=== PATIENT | female | born 1975 | race African-American/Black ===

== ENCOUNTER 2016-09-08 13:18 | Emergency (ER) | payer SELFPAY ==
--- NOTE | 2016-09-08 13:40 | ER Document Report ---
ED Medical Screen (RME) - General Stated Complaint: THIGH SORE Mode of Arrival: Ambulatory Information source: Patient Notes: 41 y/o F presents to ED c/o abscess to inner thigh over the last 3 days. Reports noted drainage today. Denies fever. I have greeted and performed a rapid initial assessment of this patient. A comprehensive ED assessment and evaluation of the patient, analysis of test results and completion of the medical decision making process will be conducted by additional ED providers. - Related Data Allergies/Adverse Reactions: No Known Allergies Allergy (Verified 09/08/16 13:38) Past Medical History - Immunizations Immunizations up to date: Yes Physical Exam - Vital signs Vitals: Temp Pulse Resp BP Pulse Ox 98.7 F 117 H 18 164/92 H 97 09/08/16 13:35 09/08/16 13:35 09/08/16 13:35 09/08/16 13:35 09/08/16 13:35 - General General appearance: Appears well, Alert In distress: None - Respiratory Respiratory status: No respiratory distress Course - Vital Signs Vital signs: Temp Pulse Resp BP Pulse Ox 98.7 F 117 H 18 164/92 H 97 09/08/16 13:35 09/08/16 13:35 09/08/16 13:35 09/08/16 13:35 09/08/16 13:35
--- NOTE | 2016-09-08 15:20 | ER Document Report ---
ED Skin Rash/Insect Bite/Abscs - General Chief Complaint: Cyst Stated Complaint: THIGH SORE Time seen by provider: 15:17 Mode of Arrival: Ambulatory Information source: Patient Notes: 41-year-old female presents to ED for an abscess to the right inner thigh she noticed about 3 days ago and has been growing in size and intensity of pain. Patient states she's had abscesses before that of resolved on her own never had to come to the emergency room or her doctor for one. TRAVEL OUTSIDE OF THE [place] IN LAST 30 DAYS: No - HPI Patient complains to provider of: Tender/swollen area Onset: Other Onset/Duration: Gradual - 3 days Quality of pain: Sharp, Throbbing Severity: Moderate Pain Level: 3 Skin Character: Abscess, Erythema, Tenderness Quality of rash: Painful Identify cause: No Exacerbated by: Movement, Walking Relieved by: Denies Similar symptoms previously: Yes Recently seen / treated by doctor: No - Related Data Allergies/Adverse Reactions: No Known Allergies Allergy (Verified 09/08/16 13:38) Past Medical History - General Information source: Patient - Social History Smoking Status: Never Smoker Cigarette use (# per day): No Chew tobacco use (# tins/day): No Smoking Education Provided: No Frequency of alcohol use: None Drug Abuse: None Occupation: none Lives with: Parents - 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 Family History: CVA, DM, Hyperlipidemia, Hypertension Patient has suicidal ideation: No Patient has homicidal ideation: No - Past Medical History Cardiac Medical History: Reports: Hx Hypertension Pulmonary Medical History: Reports: None EENT Medical History: Reports: None Neurological Medical History: Reports: None Endocrine Medical History: Reports: None Renal/ Medical History: Reports: None Malignancy Medical History: Reports: None GI Medical History: Reports: None Musculoskeltal Medical History: Reports Hx Musculoskeletal Trauma - Fracture to her leg Skin Medical History: Reports Hx Cellulitis, Denies Hx MRSA Psychiatric Medical History: Reports: None Traumatic Medical History: Reports: Hx Fractures - Leg at 8 years old Infectious Medical History: Reports: None Surgical Hx: Negative Past Surgical History: Reports: None - Immunizations Immunizations up to date: No Hx Diphtheria, Pertussis, Tetanus Vaccination: No Review of Systems - Review of Systems Constitutional: No symptoms reported EENT: No symptoms reported Cardiovascular: No symptoms reported Respiratory: No symptoms reported Gastrointestinal: No symptoms reported Genitourinary: No symptoms reported Female Genitourinary: No symptoms reported Musculoskeletal: No symptoms reported Skin: Other - Abscess to right upper thigh Hematologic/Lymphatic: No symptoms reported Neurological/Psychological: No symptoms reported -: Yes All other systems reviewed and negative Physical Exam - Vital signs Vitals: Temp Pulse Resp BP Pulse Ox 98.7 F 117 H 18 164/92 H 97 09/08/16 13:35 09/08/16 13:35 09/08/16 13:35 09/08/16 13:35 09/08/16 13:35 Interpretation: Normal - General General appearance: Appears well, Alert - HEENT Head: Normocephalic, Atraumatic Eyes: Normal Pupils: PERRL - Respiratory Respiratory status: No respiratory distress Chest status: Nontender Breath sounds: Normal Chest palpation: Normal - Cardiovascular Rhythm: Regular Heart sounds: Normal auscultation Murmur: No - Abdominal Inspection: Normal Distension: No distension Bowel sounds: Normal Tenderness: Nontender Organomegaly: No organomegaly - Back Back: Normal, Nontender - Extremities General upper extremity: Normal inspection, Nontender, Normal color, Normal ROM , Normal temperature General lower extremity: Normal inspection, Nontender, Normal color, Normal ROM , Normal temperature, Normal weight bearing. No: Kelsey's sign - Neurological Neuro grossly intact: Yes Cognition: Normal Orientation: AAOx4 [place] Coma Scale Eye Opening: Spontaneous Karsten Coma Scale Verbal: Oriented Karsten Coma Scale Motor: Obeys Commands Karsten Coma Scale Total: 15 Speech: Normal Motor strength normal: LUE, RUE, LLE, RLE Sensory: Normal - Psychological Associated symptoms: Normal affect, Normal mood - Skin Skin Temperature: Warm Skin Moisture: Dry Skin Color: Normal Skin irregularity: Abscess Location of irregularity: Extremities - Right inner thigh upper Irregularity with: Swelling, Tenderness, Warmth Course - Re-evaluation Re-evalutation: 09/08/16 16:34 Patient instructed to please keep the area clean and dry if do dressing becomes soiled to please change dressing right away otherwise change dressing 2 times a day. Patient instructed and do not pull the packing out but to return to the emergency room in 48 hours to have the wound reexamined and repacked if necessary. - Vital Signs Vital signs: Temp Pulse Resp BP Pulse Ox 98.7 F 117 H 18 164/92 H 97 09/08/16 13:35 09/08/16 13:35 09/08/16 13:35 09/08/16 13:35 09/08/16 13:35 Procedures - Incision and Drainage Right Upper Thigh Type: Simple Anesthetic type: 1% Lidocaine mL's of anesthetic: 5 Blade size: 11 I&D procedure: Iodoform packing placed, Sterile dressing applied, Other - surgical scrub Incision Method: Incision made by scalpel Amount/type of drainage: moderate amount Discharge - Discharge Clinical Impression: Abscess of right thigh Condition: Stable Disposition: HOME, SELF-CARE Additional Instructions: ABSCESS: You have an abscess (boil). This a pus-forming infection, usually due to staph. Some boils may be left to drain on their own, but most require lancing. From the time the tender lump first appears, it may be three or four days before the abscess is ready to omayra. Local heat and rest help at this stage of treatment. An antibiotic may prevent spread of the infection. Once the abscess is opened, packing may be placed into it. This is done so pus is not sealed inside by premature closure of the cavity. The packing will be removed at your follow-up visit or you may be advised to remove it yourself at home. Sometimes this packing must be replaced a few times during healing. The wound will heal with surprisingly little scar. Depending on the size and location of an abscess, healing can take one to four weeks. You may shower and wash the area around the incision site two or three times a day. Antibiotics may be prescribed, but are usually not necessary after an abscess has been drained. If you develop fever, chills, worsening pain, or increasing swelling in the area, call the doctor or return immediately. POST INCISION AND DRAINAGE: You have had an incision made to allow drainage of an abscess. The incision must remain open so that pus and debris can drain from the wound. If the abscess cavity is large, packing is placed. This keeps the tissues from collapsing and trapping pus inside, while the body shrinks the cavity. The packing may need to be replaced every day or two. The physician will instruct you on the packing. Keep a bulky dressing over the area. Replace it if it becomes saturated with blood or pus. Do not disturb the packing (if present). You may shower and cleanse the area with gentle soap and warm water two or three times a day. Local warmth may be soothing, and may promote faster healing. Return if you develop high fever or chills, or if you note spreading redness, increasing swelling, or increasing tenderness. MRSA CELLULITIS: You have an infection of your skin and underlying soft tissues called cellulitis. This is due to bacteria, which can enter through any break in the skin, or even through an irritated hair follicle. Untreated, cellulitis will usually worsen and may form an abscess which requires draining. Although many bacterial organisms can cause cellulitis and abscess formations, the most likely bacteria is Methicillin-Resistant Staph Aureus, or MRSA for short. Antibiotics are required. Usually, warm packs or warm soaks, and elevation of the infected area are recommended. You should start getting better within 24 to 36 hours. Most infections respond quickly to the right medication. Follow-up care is important, however, to check for abscess (boil) formation, unsuspected foreign body, or resistant infection. If you develop fever, chills, or if the area of infection is becoming rapidly more swollen or painful, call the doctor at once. ORAL NARCOTIC MEDICATION: You have been given a prescription for pain control. This medication is a narcotic. It's best taken with food, as nausea can result if taken on an empty stomach. Don't operate machinery or drive within six hours of taking this medication. Do not combine this medicine with alcohol, or with any medication which can cause sedation (such as cold tablets or sleeping pills) unless you get permission from the physician. Narcotics tend to cause constipation. If possible, drink plenty of fluids and eat a diet high in fiber and fruits. CEPHALEXIN: The antibiotic you've been prescribed is a member of the cephalosporin class. This type of antibiotic covers a wide variety of infections, including those of the skin, lungs, and urinary tract. It's useful for staph infections. This antibiotic is slightly similar to the penicillin family. In rare cases , a person who is allergic to penicillin will also be allergic to this medication. If you have had a severe allergic reaction to penicillin, and have not taken this antibiotic since that time, notify your doctor. Antibiotics which cover many germs ("broad spectrum" antibiotics) are more likely to cause diarrhea or "yeast" infections. Women prone to vaginal yeast problems may suffer an attack after taking this antibiotic. In infants, oral thrush (white spots "stuck" on the cheek) or yeast diaper rash may result. See your doctor if these problems occur. Call at once if you develop itching, hives , shortness of breath, or lightheadedness. TRIMETHOPRIM-SULFA: You have been given a prescription for trimethoprim-sulfa (TMS, Septra, Bactrim). This is a combination antibiotic of the sulfa class, often used for urinary tract infections, middle ear infections, bronchitis, shigella intestinal infection, and Pneumocystis pneumonia. TMS is usually well-tolerated. Occasional side effects include nausea and decreased appetite. Septra is not recommended for infants less than two months of age. Do not take this medication if you have experienced severe side effects or allergy to sulfa medicine. You should stop this medicine at once and contact your physician if you develop any rash, joint pain, shortness of breath, bruising, or jaundice ( yellow color in the skin), or if you develop any other new or unusual symptoms. FOLLOW-UP CARE: Most simple abscesses will not require a follow up visit. If you had packing placed in the abscess, remove it as instructed by the physician. If you have been referred to a physician for follow-up care, call the physicians office for an appointment as you were instructed or within the next two days. If you experience worsening or a significant change in your symptoms, return to the Emergency Department at any time for re-evaluation. Return to the ED in 48 hours to have this abscess reexamined the packing removed and if necessary replaced. Please bring back your bottle of packing do not open it do not mess with it is bring him back as is. Prescriptions: Hydrocodone/Acetaminophen [[place] 5-325 mg Tablet] 1 tab PO Q6HP PRN #14 tablet PRN Reason: Cephalexin Monohydrate [Keflex 500 mg Capsule] 500 mg PO QID #20 capsule Sulfamethoxazole/Trimethoprim [Bactrim Ds Tablet] 1 each PO BID #20 tablet Forms: Elevated Blood Pressure
[2016-09-08 16:37] VITALS: BP 151/98
== END 2016-09-08 16:41 | disposition home or self-care (01) ==
LOC: ER 13:18
PROC: 0H9HXZZ Drainage of Right Upper Leg Skin, External Approach (ICD-10-PCS; principal; 2016-09-08)
DX: L02.415 Cutaneous abscess of right lower limb (principal)
CPT/HCPCS: 99283

== ENCOUNTER 2016-09-11 14:30 | Emergency (ER) | payer SELFPAY ==
--- NOTE | 2016-09-11 14:39 | ER Document Report ---
ED Medical Screen (RME) - General Stated Complaint: WOUND RECHECK Mode of Arrival: Ambulatory Information source: Patient Notes: c/o abscess to right inner groin that was I&D on Thursday that was done at this ED and she endorses continued pain and drainage (blood, clear liquid). Packing left in place. Endorses nausea but denies fever, chills, vomiting. She was given kelfex, norco and bactrim, endorses compliance. I have greeted and performed a rapid initial assessment of this patient. A comprehensive ED assessment and evaluation of the patient, analysis of test results and completion of the medical decision making process will be conducted by additional ED providers. TRAVEL OUTSIDE OF THE [place] IN LAST 30 DAYS: No - Related Data Allergies/Adverse Reactions: No Known Allergies Allergy (Verified 09/11/16 14:37) Past Medical History - Past Medical History Cardiac Medical History: Reports: Hx Hypertension Renal/ Medical History: Denies: Hx Peritoneal Dialysis Musculoskeltal Medical History: Reports Hx Musculoskeletal Trauma - Fracture to her leg Skin Medical History: Reports Hx Cellulitis, Denies Hx MRSA Traumatic Medical History: Reports: Hx Fractures - Leg at 8 years old - Immunizations Immunizations up to date: No Hx Diphtheria, Pertussis, Tetanus Vaccination: No
--- NOTE | 2016-09-11 15:02 | ER Document Report ---
HPI - HPI Patient complains to provider of: wound check Onset: Other - thursday Onset/Duration: Better Pain Level: Denies Context: 41 yo female with abscess I and D on thursday here for packing removal, recheck. No fever. Feels better. Associated Symptoms: None Exacerbated by: Movement Relieved by: Denies Similar symptoms previously: No Recently seen / treated by doctor: Yes - ROS ROS below otherwise negative: Yes Systems Reviewed and Negative: Yes All other systems reviewed and negative - REPRODUCTIVE LMP: September 06, 2016 Reproductive: DENIES: : - DERM Skin Color: Normal Past Medical History - General Information source: Patient - Social History Smoking Status: Never Smoker Chew tobacco use (# tins/day): No Frequency of alcohol use: None Drug Abuse: None Family History: CVA, DM, Hyperlipidemia, Hypertension Patient has suicidal ideation: No Patient has homicidal ideation: No - Past Medical History Cardiac Medical History: Reports: Hx Hypertension Renal/ Medical History: Denies: Hx Peritoneal Dialysis Musculoskeltal Medical History: Reports Hx Musculoskeletal Trauma - Fracture to her leg Skin Medical History: Reports Hx Cellulitis Traumatic Medical History: Reports: Hx Fractures - Leg at 8 years old Surgical Hx: Negative - Immunizations Immunizations up to date: No Hx Diphtheria, Pertussis, Tetanus Vaccination: No Vertical Provider Document - CONSTITUTIONAL Agree With Documented VS: Yes Exam Limitations: No Limitations - INFECTION CONTROL TRAVEL OUTSIDE OF THE [place] IN LAST 30 DAYS: No - HEENT HEENT: Normocephalic - NECK Neck: Supple - RESPIRATORY O2 Sat by Pulse Oximetry: 98 - DERM Integumentary: Abscess - right medial proximal thigh, packing removed, no pus, 2 cm oval induration persists. Course - Vital Signs Vital signs: Temp Pulse Resp BP Pulse Ox 98.8 F 109 H 16 172/107 H 98 09/11/16 14:38 09/11/16 14:38 09/11/16 14:38 09/11/16 14:38 09/11/16 14:38 Discharge - Discharge Clinical Impression: wound check packing removal, Elevated blood pressure reading Condition: Good Disposition: HOME, SELF-CARE Instructions: Abscess ([facility]), High Blood Pressure ([facility]), Family Physicians / Practices Additional Instructions: continue antibiotics low salt diet recheck blood pressure in 1 week at family practice doctor. Wash vigorously with wash cloth and soap daily Dry dressing Call me on Thursday for the wound culture report [phone] to er any concerns
[2016-09-11 15:56] VITALS: BP 147/96
== END 2016-09-11 15:57 | disposition home or self-care (01) ==
LOC: ER 14:30
DX: Z48.01 Encounter for change or removal of surgical wound dressing (principal); L02.415 Cutaneous abscess of right lower limb; I10 Essential (primary) hypertension
CPT/HCPCS: 87070; 87077; 87186; 87205; 99283

== ENCOUNTER 2017-02-07 16:48 | Emergency (ER) | payer OTHER ==
[2017-02-07 16:53] VITALS: BP 165/89
[2017-02-07] MEDS ORDERED: LIDOCAINE 2% VISCOUS SOLN 20 ML UDCUP PO ONE (17:20)
[2017-02-07] MEDS ORDERED: MAG HYDROX/AL HYDROX/SIMETH SUSP 30 ML UDCUP PO ONE (17:20)
--- NOTE | 2017-02-07 17:36 | ER Document Report ---
HPI - HPI Patient complains to provider of: sore throat Pain Level: 4 Context: 42 yo female c/o sore throat x 5 days. hurts to swallow. no fever. Associated Symptoms: Body/muscle aches, Nonproductive cough, Other - fatigue. denies: Fever, Hoarseness, Nausea, Vomiting, Shortness of breath Exacerbated by: Denies Relieved by: Denies Similar symptoms previously: No Recently seen / treated by doctor: No - ROS Systems Reviewed and Negative: Yes All other systems reviewed and negative - CARDIOVASCULAR Cardiovascular: DENIES: Chest pain - REPRODUCTIVE Reproductive: DENIES: : - DERM Skin Color: Normal Past Medical History - General Information source: Patient - Social History Smoking Status: Never Smoker Chew tobacco use (# tins/day): No Frequency of alcohol use: None Drug Abuse: None Lives with: Family Family History: CVA, DM, Hyperlipidemia, Hypertension - Past Medical History Cardiac Medical History: Reports: Hx Hypertension - "borderline" Renal/ Medical History: Denies: Hx Peritoneal Dialysis Musculoskeltal Medical History: Reports Hx Musculoskeletal Trauma - Fracture to her leg Skin Medical History: Reports Hx Cellulitis, Denies Hx MRSA Traumatic Medical History: Reports: Hx Fractures - Leg at 8 years old Surgical Hx: Negative - Immunizations Immunizations up to date: No Hx Diphtheria, Pertussis, Tetanus Vaccination: No Vertical Provider Document - CONSTITUTIONAL Agree With Documented VS: Yes Exam Limitations: No Limitations General Appearance: WD/WN, No Apparent Distress - INFECTION CONTROL TRAVEL OUTSIDE OF THE [place] IN LAST 30 DAYS: No - HEENT HEENT: Atraumatic, PERRLA, Pharyngeal Tenderness. negative: Pharyngeal Exudate , Pharyngeal Erythema - NECK Neck: Lymphadenopathy-Left - anterior cervical. negative: Lymphadenopathy-Right - RESPIRATORY Respiratory: Breath Sounds Normal, No Respiratory Distress O2 Sat by Pulse Oximetry: 97 - CARDIOVASCULAR Cardiovascular: Regular Rate, Regular Rhythm - GI/ABDOMEN Gastrointestinal: Abdomen Soft - NEURO Level of Consciousness: Awake, Alert, Appropriate - DERM Integumentary: Warm, Dry, No Rash Course - Re-evaluation Re-evalutation: 02/07/17 17:35 no signs of airway obstruction, any's, tonsillar abscess. will treat with oral steroids for comfort - Vital Signs Vital signs: Temp Pulse Resp BP Pulse Ox 97.9 F 106 H 16 165/89 H 97 02/07/17 16:53 02/07/17 16:53 02/07/17 16:53 02/07/17 16:53 02/07/17 16:53 Discharge - Discharge Clinical Impression: Strep throat Condition: Stable Disposition: HOME, SELF-CARE Additional Instructions: You have strep throat take all antibiotic as prescribed oral steroid as prescribed lozenges, salt water gargles recommend new tooth brush in 2 days Prescriptions: Penicillin V Potassium [Penicillin Vk 500 mg Tablet] 500 mg PO BID #20 tablet Prednisone [Deltasone 20 mg Tablet] 2 tab PO BID #16 tablet Forms: Elevated Blood Pressure
[2017-02-07] MEDS ORDERED: PENICILLIN V POTASSIUM 500 MG TABLET PO ONE (19:14)
[2017-02-07] MEDS ORDERED: IBUPROFEN 800 MG TABLET PO ONE (19:15)
== END 2017-02-07 19:39 | disposition home or self-care (01) ==
LOC: ER 16:48
DX: J02.0 Streptococcal pharyngitis (principal); R52 Pain, unspecified; R05 Cough; R53.83 Other fatigue
CPT/HCPCS: 99283; 87880; J3490

== ENCOUNTER 2018-02-19 19:45 | Emergency (ER) | payer SELFPAY ==
[2018-02-19] MEDS ORDERED: NORMAL SALINE 1000 ML 1,000 ML IV ONE ×2 (21:10→23:53)
[2018-02-19] MEDS ORDERED: ONDANSETRON HCL INJ/PF 4 MG/2 ML SDV IV ONE (21:10)
--- NOTE | 2018-02-19 21:12 | ER Document Report ---
ED Medical Screen (RME) - General Chief Complaint: Nausea/Vomiting/Diarrhea Stated Complaint: ABDOMINAL PAIN Time Seen by Provider: 02/19/18 21:04 Mode of Arrival: Ambulatory Information source: Patient Notes: Patient is an otherwise healthy 43-year-old female who presents with chief complaint of nausea, vomiting and diarrhea that started Thursday morning. Patient also reports upper abdominal pain. Patient reports she had vomited at least 8 times today and had at least 10 episodes of diarrhea. Patient denies any fever or dysuria. Patient denies any previous surgeries on her abdomen. Patient denies any sick contacts with similar symptoms. Exam: Tenderness to palpation to right upper and left upper quadrants. Tenderness to palpation to the epigastric area as well. I have greeted and performed a rapid initial assessment of this patient. A comprehensive ED assessment and evaluation of the patient, analysis of test results and completion of the medical decision making process will be conducted by additional ED providers. Dictation of this chart was performed using voice recognition software; therefore, there may be some unintended grammatical errors. TRAVEL OUTSIDE OF THE [place] IN LAST 30 DAYS: No - Related Data Allergies/Adverse Reactions: No Known Allergies Allergy (Verified 02/07/17 16:52) Past Medical History - Social History Chew tobacco use (# tins/day): No Frequency of alcohol use: None Drug Abuse: None - Past Medical History Cardiac Medical History: Reports: Hx Hypertension - "borderline" Renal/ Medical History: Denies: Hx Peritoneal Dialysis Musculoskeltal Medical History: Reports Hx Musculoskeletal Trauma - Fracture to her leg Skin Medical History: Reports Hx Cellulitis, Denies Hx MRSA Traumatic Medical History: Reports: Hx Fractures - Leg at 8 years old - Immunizations Immunizations up to date: No Hx Diphtheria, Pertussis, Tetanus Vaccination: No Physical Exam - Vital signs Vitals: Temp Pulse Resp BP Pulse Ox 99.4 F 114 H 20 143/86 H 98 02/19/18 19:53 02/19/18 19:53 02/19/18 19:53 02/19/18 19:53 02/19/18 19:53 Course - Vital Signs Vital signs: Temp Pulse Resp BP Pulse Ox 99.4 F 114 H 20 143/86 H 98 02/19/18 19:53 02/19/18 19:53 02/19/18 19:53 02/19/18 19:53 02/19/18 19:53
[2018-02-19 21:46] LABS: ABSOLUTE EOSINOPHILS # (AUTO) 0.1 10^3/uL (0.0-0.6); ABSOLUTE LYMPHOCYTES (AUTO) 1.9 10^3/uL (0.5-4.7); ABSOLUTE MONOCYTES (AUTO) 0.9 10^3/uL (0.1-1.4); ABSOLUTE NEUT (AUTO) 3.3 10^3/uL (1.7-8.2); BASOPHILS % (AUTO) 0.7 % (0-2); EOSINOPHILS % (AUTO) 1.7 % (0-6); HEMATOCRIT 46.4 % (36.0-47.0); HEMOGLOBIN 15.8 g/dL (12.0-15.5); LYMPHOCYTES % (AUTO) 30.1 % (13-45); MEAN CORPUSCULAR HEMOGLOBIN 28.7 pg (27.0-33.4); MEAN CORPUSCULAR VOLUME 85 fl (80-97); MONOCYTES % (AUTO) 14.2 % (3-13); PLATELET COUNT 274 10^3/uL (150-450); RED CELL DISTRIBUTION WIDTH 13.7 % (11.5-14.0); SEGMENTED NEUTROPHILS % (AUTO) 53.3 % (42-78); TOTAL CELLS COUNTED % (AUTO) 100 %; WHITE BLOOD COUNT 6.2 10^3/uL (4.0-10.5)
[2018-02-19 22:08] LABS: ALANINE AMINOTRANSFERASE 34 U/L (9-52); ALBUMIN 4.3 g/dL (3.5-5.0); ALKALINE PHOSPHATASE 75 U/L (38-126); ANION GAP 14 (5-19); ASPARTATE AMINO TRANSFERASE 60 U/L (14-36); BILIRUBIN,DIRECT 0.6 mg/dL (0.0-0.4); BILIRUBIN,TOTAL 0.9 mg/dL (0.2-1.3); BLOOD UREA NITROGEN 15 mg/dL (7-20); CALCIUM 9.4 mg/dL (8.4-10.2); CARBON DIOXIDE 25 mmol/L (22-30); CHLORIDE 99 mmol/L (98-107); GLUCOSE 313 mg/dL (75-110); LIPASE 84.1 U/L (23-300); POTASSIUM 4.2 mmol/L (3.6-5.0); SODIUM 137.9 mmol/L (137-145); TOTAL PROTEIN 8.6 g/dL (6.3-8.2)
[2018-02-20] MEDS ORDERED: DICYCLOMINE HCL 20 MG TABLET PO ONE (00:13)
[2018-02-20] MEDS ORDERED: KETOROLAC TROMETHAMINE INJ/PF 30 MG/1 ML SDV IV ONE (00:13)
[2018-02-20 00:59] LABS: APPEARANCE,URINE SLIGHTLY-CLOUDY; BILIRUBIN,URINE NEGATIVE (NEGATIVE); COLOR,URINE YELLOW; GLUCOSE, URINE >=500 mg/dL (NEGATIVE); KETONES,URINE TRACE mg/dL (NEGATIVE); LEUKOCYTE ESTERASE,URINE TRACE (NEGATIVE); NITRITE,URINE NEGATIVE (NEGATIVE); PROTEIN,URINE 100 mg/dL (NEGATIVE); UROBILINOGEN,URINE NEGATIVE mg/dL (<2.0)
[2018-02-20] MEDS ORDERED: ONDANSETRON ODT 4 MG TAB (6 TAB/ER DISP) PO PRN (01:06)
--- NOTE | 2018-02-20 01:06 | ER Document Report ---
ED General - General Chief Complaint: Nausea/Vomiting/Diarrhea Stated Complaint: ABDOMINAL PAIN Time Seen by Provider: 02/19/18 21:04 Mode of Arrival: Ambulatory TRAVEL OUTSIDE OF THE [place] IN LAST 30 DAYS: No - HPI Patient complains to provider of: Nausea vomiting diarrhea abdominal cramps Notes: Patient coming in for depressive symptoms ongoing for the last 3 days. Patient states has been drinking plenty of water however is not wanting to eat any food. Denies any recent travel denies any recent antibiotics. Denies any fevers chills. Patient states no recent sick contacts. Patient was accompanied for my evaluation. States pain in her abdomen comes and goes sharp and intense and is coming on also associated with diarrhea - Related Data Allergies/Adverse Reactions: No Known Allergies Allergy (Verified 02/07/17 16:52) Past Medical History - General Information source: Patient - Social History Smoking Status: Never Smoker Chew tobacco use (# tins/day): No Frequency of alcohol use: None Drug Abuse: None Family History: CVA, DM, Hyperlipidemia, Hypertension Patient has suicidal ideation: No Patient has homicidal ideation: No - Past Medical History Cardiac Medical History: Reports: Hx Hypertension - "borderline" Renal/ Medical History: Denies: Hx Peritoneal Dialysis Musculoskeletal Medical History: Reports Hx Musculoskeletal Trauma - Fracture to her leg Skin Medical History: Reports Hx Cellulitis, Denies Hx MRSA Traumatic Medical History: Reports: Hx Fractures - Leg at 8 years old - Immunizations Immunizations up to date: No Hx Diphtheria, Pertussis, Tetanus Vaccination: No Review of Systems - Review of Systems Constitutional: No symptoms reported EENT: No symptoms reported Cardiovascular: No symptoms reported Respiratory: No symptoms reported Gastrointestinal: Abdominal pain, Diarrhea, Nausea, Vomiting Genitourinary: No symptoms reported Female Genitourinary: No symptoms reported Musculoskeletal: No symptoms reported Skin: No symptoms reported Hematologic/Lymphatic: No symptoms reported Neurological/Psychological: No symptoms reported -: Yes All other systems reviewed and negative Physical Exam - Vital signs Vitals: Temp Pulse Resp BP Pulse Ox 99.4 F 114 H 20 143/86 H 98 02/19/18 19:53 02/19/18 19:53 02/19/18 19:53 02/19/18 19:53 02/19/18 19:53 Interpretation: Normal - General General appearance: Appears well, Alert - HEENT Head: Normocephalic, Atraumatic Eyes: Normal Pupils: PERRL - Respiratory Respiratory status: No respiratory distress Chest status: Nontender Breath sounds: Normal Chest palpation: Normal - Cardiovascular Rhythm: Regular Heart sounds: Normal auscultation Murmur: No - Abdominal Inspection: Normal Distension: No distension Bowel sounds: Normal Tenderness: Nontender Organomegaly: No organomegaly - Back Back: Normal, Nontender - Extremities General upper extremity: Normal inspection, Nontender, Normal color, Normal ROM , Normal temperature General lower extremity: Normal inspection, Nontender, Normal color, Normal ROM , Normal temperature, Normal weight bearing. No: Kelsey's sign - Neurological Neuro grossly intact: Yes Cognition: Normal Orientation: AAOx4 [place] Coma Scale Eye Opening: Spontaneous [place] Coma Scale Verbal: Oriented [place] Coma Scale Motor: Obeys Commands [place] Coma Scale Total: 15 Speech: Normal Motor strength normal: LUE, RUE, LLE, RLE Sensory: Normal - Psychological Associated symptoms: Normal affect, Normal mood - Skin Skin Temperature: Warm Skin Moisture: Dry Skin Color: Normal Course - Re-evaluation Re-evalutation: 02/20/18 06:17 Laboratory studies using concentration consistent with dehydration. Patient declined second bag of fluids. Was given Bentyl for her abdominal cramps more like the patient has a viral gastroenteritis. Patient does have elevation in sugars and states she has not been diagnosed with diabetes. Encouraged patient to have her PCP evaluate her sugars in the upcoming weeks. Otherwise patient will be discharged home. The patient presents with abdominal pain without signs of peritonitis or other life-threatening or serious etiology. The patient appears stable for discharge and has been instructed to return immediately if the symptoms worsen in any way, or in 8-12hr if not improved for re-evaluation. The patient has been instructed to return if the symptoms worsen or change in any way. - Vital Signs Vital signs: Temp Pulse Resp BP Pulse Ox 97.8 F 97 18 152/83 H 98 02/20/18 01:21 02/20/18 01:21 02/20/18 01:21 02/20/18 01:21 02/19/18 19:53 - Laboratory Result Diagrams: 02/19/18 21:30 02/19/18 21:30 Laboratory results interpreted by me: 02/19/18 02/19/18 02/20/18 21:30 21:30 00:21 RBC 5.50 H Hgb 15.8 H Monocytes % 14.2 H Glucose 313 H Direct Bilirubin 0.6 H AST 60 H Total Protein 8.6 H Urine Protein 100 H Urine Glucose (UA) >=500 H Urine Ketones TRACE H Ur Leukocyte Esterase TRACE H Discharge - Discharge Clinical Impression: Nausea vomiting and diarrhea Condition: Good Disposition: HOME, SELF-CARE Instructions: Clear Liquid Diet ([facility]), Gastroenteritis (adult) ([facility]) Additional Instructions: Take your medications as prescribed he returned to near symptoms worsen. Follow up with her primary care physician. At this time and laboratory values not show any significant signs of infection. We will call you with your stool culture results. Follow clear liquid diet for the next 12-24 hours. Advance as tolerated. Prescriptions: Dicyclomine HCl [Bentyl 20 mg Tablet] 20 mg PO QID #30 tablet Ondansetron [Zofran Odt] 4 mg PO Q6 PRN #30 tab.rapdis PRN Reason: For Nausea/Vomiting Forms: Return to Work
[2018-02-20 01:29] VITALS: BP 152/83
== END 2018-02-20 01:28 | disposition home or self-care (01) ==
LOC: ER 19:45
DX: R11.2 Nausea with vomiting, unspecified (principal); R19.7 Diarrhea, unspecified; R10.9 Unspecified abdominal pain
CPT/HCPCS: 99284; 96361; 96374; 96375; 36415; 87045; 87205; 83690; 85025; 81025; 87077; 80053; 81001; 87186; J3490; J1885; J2405; J7030

== ENCOUNTER → 2018-04-06 | Outpatient (CLI) | payer SELFPAY ==
[2018-04-06 14:20] LABS: ABSOLUTE BASOPHILS # (AUTO) 0.1 10^3/uL (0.0-0.2); ABSOLUTE EOSINOPHILS # (AUTO) 0.2 10^3/uL (0.0-0.6); ABSOLUTE LYMPHOCYTES (AUTO) 2.3 10^3/uL (0.5-4.7); ABSOLUTE MONOCYTES (AUTO) 0.5 10^3/uL (0.1-1.4); ABSOLUTE NEUT (AUTO) 4.9 10^3/uL (1.7-8.2); BASOPHILS % (AUTO) 0.6 % (0-2); EOSINOPHILS % (AUTO) 2.2 % (0-6); HEMATOCRIT 41.5 % (36.0-47.0); HEMOGLOBIN 14.3 g/dL (12.0-15.5); LYMPHOCYTES % (AUTO) 28.9 % (13-45); MEAN CORPUSCULAR HGB CONC 34.5 g/dL (32.0-36.0); MEAN CORPUSCULAR VOLUME 84 fl (80-97); MONOCYTES % (AUTO) 6.7 % (3-13); PLATELET COUNT 282 10^3/uL (150-450); RED BLOOD COUNT 4.93 10^6/uL (3.72-5.28); RED CELL DISTRIBUTION WIDTH 14.1 % (11.5-14.0); SEGMENTED NEUTROPHILS % (AUTO) 61.6 % (42-78); TOTAL CELLS COUNTED % (AUTO) 100 %; WHITE BLOOD COUNT 7.9 10^3/uL (4.0-10.5)
[2018-04-06 14:39] LABS: ALANINE AMINOTRANSFERASE 31 U/L (9-52); ALKALINE PHOSPHATASE 70 U/L (38-126); ANION GAP 10 (5-19); ASPARTATE AMINO TRANSFERASE 21 U/L (14-36); BILIRUBIN,DIRECT 0.5 mg/dL (0.0-0.4); BILIRUBIN,TOTAL 0.9 mg/dL (0.2-1.3); BLOOD UREA NITROGEN 12 mg/dL (7-20); CALCIUM 9.7 mg/dL (8.4-10.2); CARBON DIOXIDE 29 mmol/L (22-30); CHLORIDE 96 mmol/L (98-107); CHOLESTEROL 308.02 mg/dL (0-200); GLUCOSE 240 mg/dL (75-110); SODIUM 134.8 mmol/L (137-145); TOTAL PROTEIN 7.2 g/dL (6.3-8.2); TRIGLYCERIDES 370 mg/dL (<150)
[2018-04-06 14:50] LABS: DIRECT LDL 182 mg/dL (<100)
== END ==
LOC: OD 12:29
PROVIDERS: ATTEND Family Medicine
DX: I10 Essential (primary) hypertension (principal); Z68.42 Body mass index [BMI] 45.0-49.9, adult
CPT/HCPCS: 36415; 80053; 80061; 83036; 85025

== ENCOUNTER 2019-04-18 10:51 | Emergency (ER) | payer BC ==
[2019-04-18 11:58] LABS: A TYPE INFLUENZA AG NEGATIVE (NEGATIVE); B INFLUENZA AG NEGATIVE (NEGATIVE)
--- NOTE | 2019-04-18 12:57 | RADIOLOGY REPORT (SQ) ---
EXAM DESCRIPTION: CHEST 2 VIEWS COMPLETED DATE/TIME: 04/18/2019 12:44 pm REASON FOR STUDY: cough x1 week COMPARISON: None. EXAM PARAMETERS: NUMBER OF VIEWS: two views TECHNIQUE: Digital Frontal and Lateral radiographic views of the chest acquired. RADIATION DOSE: NA LIMITATIONS: Motion artifact on the lateral view FINDINGS: LUNGS AND PLEURA: No opacities, masses or pneumothorax. No pleural effusion. MEDIASTINUM AND HILAR STRUCTURES: No masses or contour abnormalities. HEART AND VASCULAR STRUCTURES: Mild cardiomegaly BONES: No acute findings. HARDWARE: None in the chest. OTHER: No other significant finding. IMPRESSION: Mild cardiomegaly. No acute infiltrates TECHNICAL DOCUMENTATION: JOB ID: [id number]- All Rights Reserved Reading location - IP/workstation name: [email or web address]
[2019-04-18 13:28] VITALS: BP 162/98
--- NOTE | 2019-04-18 13:31 | ER Document Report ---
HPI - HPI Time Seen by Provider: 04/18/19 11:15 Pain Level: 3 Notes: Patient is a 44-year-old female presenting to the emergency department with multiple complaints today. She reports that she has had a cough, congestion, diarrhea and shortness of breath. She denies any vomiting. She states that today while she was at work she got sweaty and then had chills. She reports history of diabetes and hypertension, states she was diagnosed with these 5 months ago but states she has not taken any of the medications as she has seen commercials that show that those medications have a lot of side effects so she does not feel she needs to take them. Patient has not taken any [id number] medications for her symptoms today because again she does not like taking medications unless she absolutely has to. She denies any chest pain but reports generalized body aches. - CONSTITUTIONAL Constitutional: REPORTS: Chills. DENIES: Fever - EENT EENT: DENIES: Sore Throat, Ear Pain, Eye problems - NEURO Neurology: DENIES: Headache, Weakness, Vision blurred, Dizzinesss / Vertigo - CARDIOVASCULAR Cardiovascular: DENIES: Chest pain - RESPIRATORY Respiratory: DENIES: Trouble Breathing, Coughing - GASTROINTESTINAL Gastrointestinal: DENIES: Abdominal Pain, Black / Bloody Stools - URINARY Urinary: DENIES: Dysuria, Urgency, Frequency - REPRODUCTIVE Reproductive: DENIES: : - MUSCULOSKELETAL Musculoskeletal: DENIES: Extremity pain Past Medical History - General Information source: Patient - Social History Smoking Status: Never Smoker Chew tobacco use (# tins/day): No Frequency of alcohol use: None Drug Abuse: None Family History: CVA, DM, Hyperlipidemia, Hypertension Patient has suicidal ideation: No Patient has homicidal ideation: No - Past Medical History Cardiac Medical History: Reports: Hx Hypertension Endocrine Medical History: Reports: Hx Diabetes Mellitus Type 2 Renal/ Medical History: Denies: Hx Peritoneal Dialysis Musculoskeletal Medical History: Reports Hx Musculoskeletal Trauma - Fracture to her leg Skin Medical History: Reports Hx Cellulitis, Denies Hx MRSA Traumatic Medical History: Reports: Hx Fractures - Leg at 8 years old - Immunizations Immunizations up to date: No Hx Diphtheria, Pertussis, Tetanus Vaccination: No Vertical Provider Document - CONSTITUTIONAL Notes: PHYSICAL EXAMINATION: GENERAL: Well-appearing, well-nourished and in no acute distress. HEAD: Atraumatic, normocephalic. EYES: Pupils equal round and reactive to light, extraocular movements intact, conjunctiva are normal. ENT: Nares patent, oropharynx clear without exudates. Moist mucous membranes. NECK: Normal range of motion, supple without lymphadenopathy LUNGS: Breath sounds clear to auscultation bilaterally and equal. No wheezes rales or rhonchi. HEART: Regular rate and rhythm without murmurs ABDOMEN: Soft, nontender, nondistended abdomen. No guarding, no rebound. No masses appreciated. Female : deferred Musculoskeletal: Normal range of motion, no pitting or edema. No cyanosis. NEUROLOGICAL: Cranial nerves grossly intact. Normal speech, normal gait. Normal sensory, motor exams PSYCH: Normal mood, normal affect. SKIN: Warm, Dry, normal turgor, no rashes or lesions noted. - INFECTION CONTROL TRAVEL OUTSIDE OF THE [place] IN LAST 30 DAYS: No Course - Re-evaluation Re-evalutation: Laboratory 04/18/19 11:30 Influenza A (Rapid) NEGATIVE Influenza B (Rapid) NEGATIVE Chest X-Ray 04/18/19 12:26 IMPRESSION: Mild cardiomegaly. No acute infiltrates Patient declines the need for any prescriptions, she was offered some symptomatic relief for her symptoms such as a course of prednisone were some Tessalon Perles. She states she does not like taking medications. Patient is requesting a work note. Patient will be following up with Dr. Sal regarding the mild cardiomegaly found on chest x-ray. I attempted to discuss the importance of her being compliant with her diabetes and high blood pressure medications and patient did assure me that she would follow back up with her primary care provider and restart her medications. - Vital Signs Vital signs: Temp Pulse Resp BP Pulse Ox 98.4 F 112 H 16 171/79 H 95 04/18/19 11:06 04/18/19 11:06 04/18/19 11:06 04/18/19 11:06 04/18/19 11:06 Discharge - Discharge Clinical Impression: Viral illness Condition: Stable Disposition: HOME, SELF-CARE Additional Instructions: Please take blood pressure medication as prescribed. I believe your other symptoms are coming from some type of viral illness. Drink plenty of fluids over the next several days. Rest. Take Tylenol or ibuprofen for any pain or body aches. It is imperative that you follow-up with Dr. Sal to get restarted on all of your blood pressure medications and your diabetic medications. Prescriptions: Amlodipine Besylate [Norvasc 2.5 mg Tablet] 2.5 mg PO DAILY #30 tablet Forms: Return to Work Referrals: YANNI SAL MD [Primary Care Provider] - Follow up as needed
[2019-04-18] MEDS ORDERED: AMLODIPINE BESYLATE 2.5 MG TABLET PO ONE (13:56)
== END 2019-04-18 14:09 | disposition home or self-care (01) ==
LOC: ER 10:51
DX: B34.9 Viral infection, unspecified (principal); R05 Cough; R09.81 Nasal congestion; R19.7 Diarrhea, unspecified; R06.02 Shortness of breath; R61 Generalized hyperhidrosis; R68.83 Chills (without fever); E11.9 Type 2 diabetes mellitus without complications; I10 Essential (primary) hypertension
CPT/HCPCS: 71046; 87804; 99283

== ENCOUNTER 2019-06-13 14:22 | Inpatient (IN) | payer BC ==
[2019-06-13] MEDS ORDERED: IBUPROFEN 800 MG TABLET PO ONE (15:23)
--- NOTE | 2019-06-13 15:26 | ER Document Report ---
ED Medical Screen (RME) - General Chief Complaint: Abscess Stated Complaint: ABSCESS Time Seen by Provider: 06/13/19 15:18 Primary Care Provider: YANNI SAL MD [Primary Care Provider] - Follow up as needed Notes: Patient is a 44-year-old female with a history of type 2 diabetes and hypertension who presents to the emergency department with a chief complaint of left breast abscess. Patient reports this developed 2 days ago. She denies drainage. She reports she has been using a Lidoderm patch to the site with no relief. Patient reports she does have a history of abscesses and is requesting sedation is that it is extremely painful and unable to tolerate. Patient reports there is no nipple involvement. Patient reports she has been out of her diabetes medication for months and has not been checking her blood sugar. Patient denies fever but does report chills. TRAVEL OUTSIDE OF THE [place] IN LAST 30 DAYS: No - Related Data Allergies/Adverse Reactions: No Known Allergies Allergy (Verified 02/07/17 16:52) Past Medical History - Past Medical History Cardiac Medical History: Reports: Hx Hypertension Endocrine Medical History: Reports: Hx Diabetes Mellitus Type 2 Renal/ Medical History: Denies: Hx Peritoneal Dialysis Musculoskeltal Medical History: Reports Hx Musculoskeletal Trauma - Fracture to her leg Skin Medical History: Reports Hx Cellulitis, Denies Hx MRSA Traumatic Medical History: Reports: Hx Fractures - Leg at 8 years old - Immunizations Immunizations up to date: No Hx Diphtheria, Pertussis, Tetanus Vaccination: No Physical Exam - Vital signs Vitals: Temp Pulse Resp BP Pulse Ox 98.1 F 108 H 20 159/95 H 100 06/13/19 14:38 06/13/19 14:38 06/13/19 14:38 06/13/19 14:38 06/13/19 14:38 - Skin Notes: Left breast abscess noted; left lower outer quadrant, with surrounding erythematous firm area. Course - Re-evaluation Re-evalutation: 06/13/19 15:25 I have greeted and performed a rapid initial assessment of this patient. A comprehensive ED assessment and evaluation of the patient, analysis of test results and completion of the medical decision making process will be conducted by additional ED providers. - Vital Signs Vital signs: Temp Pulse Resp BP Pulse Ox 98.1 F 108 H 20 159/95 H 100 06/13/19 14:38 06/13/19 14:38 06/13/19 14:38 06/13/19 14:38 06/13/19 14:38 Doctor's Discharge - Discharge Referrals: YANNI SAL MD [Primary Care Provider] - Follow up as needed
--- NOTE | 2019-06-13 15:59 | ER Document Report ---
ED Skin Rash/Insect Bite/Abscs - General Chief Complaint: Abscess Stated Complaint: ABSCESS Time Seen by Provider: 06/13/19 15:18 Notes: Patient is a 44-year-old female who presents the emergency department with a chief complaint of left breast pain. She states that she has felt a possible abscess to the area for the past 5 days, but the last 3 days it has gotten progressively worse. She states that she has tried boil ease, Lidoderm patch, and warm compresses to help, but has had little relief. Patient is a diabetic, but states that she has not been on her medications. She also has hypertension, but has not been taking her medication. TRAVEL OUTSIDE OF THE [place] IN LAST 30 DAYS: No - Related Data Allergies/Adverse Reactions: No Known Allergies Allergy (Verified 02/07/17 16:52) Past Medical History - Social History Smoking Status: Unknown if Ever Smoked Family History: CVA, DM, Hyperlipidemia, Hypertension Patient has suicidal ideation: No Patient has homicidal ideation: No - Past Medical History Cardiac Medical History: Reports: Hx Hypertension Endocrine Medical History: Reports: Hx Diabetes Mellitus Type 2 Renal/ Medical History: Denies: Hx Peritoneal Dialysis Musculoskeletal Medical History: Reports Hx Musculoskeletal Trauma - Fracture to her leg Skin Medical History: Reports Hx Cellulitis, Denies Hx MRSA Traumatic Medical History: Reports: Hx Fractures - Leg at 8 years old - Immunizations Immunizations up to date: No Hx Diphtheria, Pertussis, Tetanus Vaccination: No Review of Systems - Review of Systems Notes: REVIEW OF SYSTEMS: CONSTITUTIONAL : Denies recent illness. Denies recent unintentional weight loss. Denies fever, chills, or sweats. EENT: Denies eye, ear, throat, or mouth pain, discharge, or symptoms. Denies nasal or sinus congestion. CARDIOVASCULAR: Denies chest pain. RESPIRATORY: Denies shortness of breath, cough, congestion, difficulty breathing, or wheezing. GASTROINTESTINAL: Denies nausea, vomiting, and diarrhea. Denies abdominal pain. Denies constipation. GENITOURINARY: Denies difficulty urinating, burning, blood in urine, urgency or frequency. MUSCULOSKELETAL: Denies neck and back pain. Denies joint pain or swelling. SKIN: Denies rash, itchiness, or lesions HEMATOLOGIC : Denies easy bruising or bleeding. LYMPHATIC: Denies swollen, painful, enlarged glands. NEUROLOGICAL: Denies no numbness or tingling denies weakness. Denies headache. Denies altered mental status. Denies alteration in speech. PSYCHIATRIC: Denies stress, anxiety, alteration in sleep patterns, or depression. All other systems reviewed and negative. Physical Exam - Vital signs Vitals: Temp Pulse Resp BP Pulse Ox 98.1 F 108 H 20 159/95 H 100 06/13/19 14:38 06/13/19 14:38 06/13/19 14:38 06/13/19 14:38 06/13/19 14:38 - Notes Notes: PHYSICAL EXAMINATION: GENERAL: Appears well, healthy, well-nourished, no acute distress. HEAD: Normocephalic, atraumatic. EYES: PERRL, conjunctiva normal, all extraocular movements intact, sclera nonicteric ENT: Moist mucous membranes. NECK: Supple, no noticeable swelling, redness, rash. Normal range of motion. LUNGS: Equal breath sounds bilaterally and clear to auscultation. No wheezes rales or rhonchi. CARDIOVASCULAR: S1-S2, regular rate, regular rhythm. Radial pulses 2+, normal. ABDOMEN: Normoactive bowel sounds. Soft, nontender, no guarding, no rebound tenderness, and no masses palpated. EXTREMITIES: Normal strength and range of motion, no pitting or edema. No cyanosis. NEUROLOGICAL: Moves all extremities upon command. Strength 5/5 in all extremities. PSYCH: Normal mood, normal affect. SKIN: Warm, dry. Edema, erythema, and pustule noted to left inferior, lateral breast. Course - Re-evaluation Re-evalutation: 06/13/19 17:49 Patient has a 2.8 x 3.0 x 2.3 cm abscess at the 4 o'clock position. I spoke with Dr. Laughlin, the surgeon on-call and he will assess the patient. Hematology shows a slight leukocytosis of 10,000. 06/13/19 18:10 Dr. Laughlin has assessed the patient. He will bring the patient to the OR. Clindamycin has been ordered. - Vital Signs Vital signs: Temp Pulse Resp BP Pulse Ox 99.0 F 104 H 22 H 150/73 H 98 06/13/19 23:48 06/13/19 23:48 06/13/19 23:48 06/13/19 23:48 06/13/19 23:48 - Laboratory Result Diagrams: 06/13/19 17:09 06/13/19 17:09 Laboratory results interpreted by me: 06/13/19 06/13/19 06/13/19 17:05 17:09 17:09 WBC 10.9 H Absolute Neuts (auto) 8.3 H Sodium 134.0 L Glucose 266 H POC Glucose 297 H Discharge - Discharge Clinical Impression: Left breast abscess Condition: Stable Disposition: ADMITTED INPATIENT Admitting Provider: Surgicalist Unit Admitted: OR
--- NOTE | 2019-06-13 17:23 | RADIOLOGY REPORT (SQ) ---
EXAM DESCRIPTION: U/S BREAST UNILATERAL COMPLETE COMPLETED DATE/TIME: 06/13/2019 4:42 pm REASON FOR STUDY: evaluate left breast abscess COMPARISON: None. TECHNIQUE: Dynamic and static grayscale images acquired of the localized site of clinical concern an d recorded on PACS. Additional selected color Doppler and spectral images recorded. SITE OF CONCERN: Left breast 4 o'clock position LIMITATIONS: None. FINDINGS: SKIN AND SUBCUTANEOUS TISSUES: There is a 2.8 x 3.0 x 2.3 cm irregular hypoechoic heteroge neous region within the subcutaneous tissues of the left breast at the 4 o'clock region corresponding to the area of concern. There is evidence of vascularity along the periphery. No significant centr al vascularity. DEEP SOFT TISSUES/MUSCLES: Not imaged OTHER: No other significant finding. IMPRESSION: Irregular hypoechoic collection measuring approximately 2.8 x 3.0 x 2.3 cm along the lef t breast 4 o'clock position suggestive of an abscess. Recommend dedicated follow-up breast imaging following treatment and resolution of current symptoms. TECHNICAL DOCUMENTATION: JOB ID: [id number]- All Rights Reserved Reading location - IP/workstation name: [email or web address]
[2019-06-13 17:29] LABS: ABSOLUTE EOSINOPHILS # (AUTO) 0.1 10^3/uL (0.0-0.6); ABSOLUTE LYMPHOCYTES (AUTO) 1.5 10^3/uL (0.5-4.7); ABSOLUTE NEUT (AUTO) 8.3 10^3/uL (1.7-8.2); BASOPHILS % (AUTO) 0.4 % (0-2); EOSINOPHILS % (AUTO) 0.9 % (0-6); HEMATOCRIT 38.4 % (36.0-47.0); HEMOGLOBIN 12.8 g/dL (12.0-15.5); LYMPHOCYTES % (AUTO) 13.9 % (13-45); MEAN CORPUSCULAR HGB CONC 33.4 g/dL (32.0-36.0); MEAN CORPUSCULAR VOLUME 87 fl (80-97); MONOCYTES % (AUTO) 8.9 % (3-13); PLATELET COUNT 252 10^3/uL (150-450); RED BLOOD COUNT 4.42 10^6/uL (3.72-5.28); RED CELL DISTRIBUTION WIDTH 13.7 % (11.5-14.0); SEGMENTED NEUTROPHILS % (AUTO) 75.9 % (42-78); TOTAL CELLS COUNTED % (AUTO) 100 %; WHITE BLOOD COUNT 10.9 10^3/uL (4.0-10.5)
[2019-06-13] MEDS ORDERED: CLINDAMYCIN 300 MG/D5W RTU 300 MG/50 ML RTUPB IV ONE (17:50)
[2019-06-13 17:58] LABS: ALBUMIN 3.8 g/dL (3.5-5.0); ALKALINE PHOSPHATASE 90 U/L (38-126); ANION GAP 9 (5-19); ASPARTATE AMINO TRANSFERASE 22 U/L (14-36); BILIRUBIN,DIRECT 0.2 mg/dL (0.0-0.4); BILIRUBIN,TOTAL 0.9 mg/dL (0.2-1.3); BLOOD UREA NITROGEN 10 mg/dL (7-20); CALCIUM 9.3 mg/dL (8.4-10.2); CARBON DIOXIDE 26 mmol/L (22-30); CHLORIDE 99 mmol/L (98-107); GLUCOSE 266 mg/dL (75-110); POTASSIUM 4.3 mmol/L (3.6-5.0)
[2019-06-13] MEDS ORDERED: LIDOCAINE 2% INJ-PF (100 MG/5 ML) SYRINGE ONE (18:18)
[2019-06-13] MEDS ORDERED: FENTANYL CITRATE INJ/PF 100 MCG/2 ML AMPUL ONE (18:18)
[2019-06-13] MEDS ORDERED: MIDAZOLAM 2 MG/2 ML INJ ONE (18:19)
[2019-06-13] MEDS ORDERED: ONDANSETRON HCL INJ/PF 4 MG/2 ML SDV ONE (18:19)
[2019-06-13] MEDS ORDERED: PROPOFOL INJ 200 MG/20 ML VIAL IV ONE ×2 (18:19→19:10)
--- NOTE | 2019-06-13 18:25 | PDOC H&P ---
History of Present Illness Patient complains of: Left breast pain History of Present Illness: PALAK PUCKETT is a 44 year old female Presents to the emergency department via ground rescue complaining of a several day history of swelling, pain, discoloration of the left breast. Patient denies history of previous breast abscess, breast trauma, breast biopsy or breast problems. Patient was seen in the emergency department where she is found to have a left breast abscess requiring drainage. Surgery was consulted she was advised admission for definitive management. Patient does not smoke. She is a diabetic, noncompliant. Past Medical History Past Medical History: Diabetes, hypertension, obesity Cardiac Medical History: Reports: Hypertension Endocrine Medical History: Reports: Diabetes Mellitus Type 2 Past Surgical History Past Surgical History: Reports: None Social History Information Source: Patient Smoking Status: Unknown if Ever Smoked Electronic Cigarette use?: No Frequency of Alcohol Use: Rare Hx Recreational Drug Use: No Family History Family History: None, CVA, DM, Hyperlipidemia, Hypertension Parental Family History Reviewed: Yes Children Family History Reviewed: Yes Sibling(s) Family History Reviewed.: Yes Medication/Allergy Home Medications: No Home Medications 03/11/13 Oxycodone HCl/Acetaminophen [Percocet 5-325 mg Tablet] 1 - 2 tab PO ASDIR PRN #25 tablet 03/11/13 Cyclobenzaprine HCl [Flexeril 10 Mg Tablet] 10 mg PO TID #30 tablet 12/02/13 Naproxen 500 mg PO BID #20 tablet 12/02/13 Oxycodone HCl/Acetaminophen [Percocet 5-325 mg Tablet] 1 - 2 tab PO ASDIR PRN #15 tablet 12/02/13 Cephalexin Monohydrate [Keflex 500 mg Capsule] 500 mg PO QID #20 capsule 09/08/16 Hydrocodone/Acetaminophen [[place] 5-325 mg Tablet] 1 tab PO Q6HP PRN #14 tablet 09/08/16 Sulfamethoxazole/Trimethoprim [Bactrim Ds Tablet] 1 each PO BID #20 tablet 09/08/16 Amoxicillin Trihydrate [Amoxil 250 mg/5 ml Susp] 10 ml PO TID #300 ml 02/07/17 Penicillin V Potassium [Penicillin Vk 500 mg Tablet] 500 mg PO BID #20 tablet 02/07/17 Prednisolone 45 mg PO BID #120 ml 02/07/17 Prednisone [Deltasone 20 mg Tablet] 2 tab PO BID #16 tablet 02/07/17 Dicyclomine HCl [Bentyl 20 mg Tablet] 20 mg PO QID #30 tablet 02/20/18 Ondansetron [Zofran Odt] 4 mg PO Q6 PRN #30 tab.rapdis 02/20/18 Cephalexin Monohydrate [Keflex 500 mg Capsule] 500 mg PO Q6H 5 Days capsule 05/11/18 Sulfamethoxazole/Trimethoprim [Bactrim Ds Tablet] 1 each PO BID #20 tablet 05/11/18 Amlodipine Besylate [Norvasc 2.5 mg Tablet] 2.5 mg PO DAILY #30 tablet 04/18/19 Allergies/Adverse Reactions: No Known Allergies Allergy (Verified 02/07/17 16:52) Review of Systems Constitutional: PRESENT: as per HPI Eyes: ABSENT: visual disturbances Ears: ABSENT: hearing changes Cardiovascular: ABSENT: chest pain, dyspnea on exertion, edema, orthropnea, palpitations Respiratory: ABSENT: cough, hemoptysis Gastrointestinal: ABSENT: abdominal pain, constipation, diarrhea, hematemesis, hematochezia, nausea, vomiting Genitourinary: PRESENT: as per HPI Neurological: ABSENT: abnormal gait, abnormal speech, confusion, dizziness, focal weakness, syncope Psychiatric: ABSENT: anxiety, depression, homidical ideation, suicidal ideation Endocrine: PRESENT: other - Patient states she is been a diabetic for a year but does not take medications recommended Physical Exam Vital Signs: Temp Pulse Resp BP Pulse Ox 98.1 F 108 H 20 159/95 H 100 06/13/19 14:38 06/13/19 14:38 06/13/19 14:38 06/13/19 14:38 06/13/19 14:38 Intake & Output 06/12/19 06/13/19 06/14/19 06:59 06:59 06:59 Weight 130.3 kg General appearance: PRESENT: no acute distress Head exam: PRESENT: normocephalic Eye exam: PRESENT: EOMI Mouth exam: PRESENT: dry mucosa Neck exam: PRESENT: full ROM Respiratory exam: PRESENT: clear to auscultation paulina Cardiovascular exam: PRESENT: RRR Pulses: PRESENT: normal carotid pulses, normal radial pulses, normal femoral pulses, normal dorsalis pedis pul Vascular exam: PRESENT: normal capillary refill GI/Abdominal exam: PRESENT: soft Rectal exam: PRESENT: deferred Extremities exam: PRESENT: full ROM Musculoskeletal exam: PRESENT: full ROM Neurological exam: PRESENT: alert, awake, oriented to person, oriented to time, oriented to situation Skin exam: PRESENT: other - Left breast examined. 2 sites of focal erythema, swelling, tenderness left breast, with the hottest firmest area at the 4 o'clock position, 8 cm from nipple, no drainage, very tender Results Laboratory Results: 06/13/19 17:09 06/13/19 17:09 06/13/19 06/13/19 17:09 17:09 WBC 10.9 H RBC 4.42 Hgb 12.8 Hct 38.4 MCV 87 MCH 29.0 MCHC 33.4 RDW 13.7 Plt Count 252 Seg Neutrophils % 75.9 Sodium 134.0 L Potassium 4.3 Chloride 99 Carbon Dioxide 26 Anion Gap 9 BUN 10 Creatinine 0.52 Est GFR ( Amer) > 60 Glucose 266 H Calcium 9.3 Total Bilirubin 0.9 AST 22 Alkaline Phosphatase 90 Total Protein 7.0 Albumin 3.8 Impressions: Breast Ultrasound 06/13/19 15:23 IMPRESSION: Irregular hypoechoic collection measuring approximately 2.8 x 3.0 x 2.3 cm along the left breast 4 o'clock position suggestive of an abscess. Recommend dedicated follow-up breast imaging following treatment and resolution of current symptoms. Assessment & Plan - Diagnosis (1) Left breast abscess Is this a current diagnosis for this admission?: Yes Plan: Impression: Acute left breast abscess, possibly multiple and 44-year-old Afro- [place] female with obesity and diabetes. Recommendations: 1. Admit to the surgical service, keep n.p.o., on IV fluids and intravenous antibiotics. 2. I spent a fair amount of time explained to the patient and her sister the need for incision and drainage and packing of this abscess. Will be done under anesthesia in the main operating room. The risks, benefits, and alternatives to the planned procedure were explained to the patient and her sister. They agree to proceed. 3. Patient will be hospitalized for at least 24 hours for intravenous antibiotics, and initiation of dressing changes. (2) Obesity Is this a current diagnosis for this admission?: Yes (3) Hypertension Is this a current diagnosis for this admission?: Yes (4) Diabetes mellitus Is this a current diagnosis for this admission?: Yes - Time Time Spent: 30 to 50 Minutes Critical Time spent with patient: 15-24 minutes Medications reviewed and adjusted accordingly: Yes Anticipated discharge: Home - Inpatient Certification Based on my medical assessment, after consideration of the patient's comorbidities, presenting symptoms, or acuity I expect that the services needed warrant INPATIENT care.: Yes I certify that my determination is in accordance with my understanding of [facility]'s requirements for reasonable and necessary INPATIENT services [42 CFR 412.3e].: Yes Medical Necessity: Need For IV Fluids, Need for Pain Control, Need for IV Antibiotics, Need for Surgery
[2019-06-13] MEDS ORDERED: GLUCAGON,HUMAN RECOMB 1 MG INJ IM PRN (18:26)
[2019-06-13] MEDS ORDERED: DEXTROSE 40% GEL 15 GM TUBE PO PRN ×2 (18:26)
[2019-06-13] MEDS ORDERED: DEXTROSE 50%-WATER 25 GM/50 ML DISP.SYRIN IV PRN ×2 (18:26)
[2019-06-13] MEDS ORDERED: RINGERS SOLUTION,LACTATED 1,000 ML IV ONE (18:29)
[2019-06-13] MEDS ORDERED: BUPIVACAINE HCL 0.25 % INJ/PF (2.5 MG/1 ML) 30 ML VIAL ONE (18:50)
[2019-06-13] MEDS ORDERED: LIDOCAINE 0.5% INJ-PF (5 MG/ML) 50 ML SDV ONE (18:51)
[2019-06-13] MEDS ORDERED: DEXMEDETOMIDINE INJ 80 MCG/20 ML VIAL IV ONE (19:10)
--- NOTE | 2019-06-13 19:59 | Operative Report ---
Operative Report DATE OF SURGERY: 06/13/19 PREOPERATIVE DIAGNOSIS: 1. Left breast abscess, multiloculated. 2. Diabetes mellitus. 3. Obesity POSTOPERATIVE DIAGNOSIS: Same, with infection suspicious for MRSA OPERATION: Excisional debridement of skin, subcutaneous tissue left breast abscess SURGEON: RAKEL HANLEY 1ST JET BLADE POLISHER: None ANESTHESIA: LMAC TISSUE REMOVED OR ALTERED: Skin and subcutaneous tissue left breast abscess COMPLICATIONS: None ESTIMATED BLOOD LOSS: 20 cc INTRAOPERATIVE FINDINGS: See below PROCEDURE: The patient was taken to the preop holding area to the main operating where LMAC anesthesia was induced. Left arm was abducted, left breast prepped and draped sterile fashion. Surgical plan surgical timeout were conducted. The left breast was significant for a erythematous swollen discolored spot 8 cm from the left nipple, 4 o'clock position. Skin was anesthetized with 1% plain lidocaine and quarter percent Marcaine. 3 cm incision was made over the point of maximum patient. Significant amount of pus was evacuated, and sent for Gram stain culture and sensitivity. Using a #10 blade, a 3 cm hole was made in the skin in the shape of an ellipse. Now using electrocautery, and curette, loculations of woody, purulent filled subcutaneous tissue was debrided, and excised. Final cavity approximately 5 x 5 cm was created. Because of the woody nature of the it was difficult to break up every single loculation, but the majority of the large areas to fully opened up. The wound was irrigated with 1/2 L of saline and packed with 1 inch wide iodoform packing, using the entire bottle. 4 x 4's applied. Patient tolerated the procedure well.
[2019-06-13] MEDS: NORMAL SALINE 1000 ML 1,000 ML IV PRN (22:52)
[2019-06-13] MEDS: CLINDAMYCIN 600 MG/D5W RTU 600 MG/50 ML RTUPB IV SCH (22:52)
[2019-06-13] MEDS: KETOROLAC TROMETHAMINE 10 MG TABLET PO PRN (23:33)
[2019-06-13] MEDS ORDERED: HYDRALAZINE HCL INJ/PF 20 MG/1 ML SDV IV PRN (23:56)
[2019-06-14] MEDS ORDERED: INSULIN REG, HUMAN 100 UNIT/ML 3 ML VIAL (PYX) SUBCUT SCH
--- NOTE | 2019-06-14 00:14 | PDOC CONSULTATION ---
Consultation Consult Date: 06/13/19 Attending physician:: RAKEL LAUGHLIN Provider Consulted: GRETEL WU Consult reason:: Poorly controlled diabetes and hypertension History of Present Illness Admission Date/PCP: 06/13/19 18:26 Patient complains of: Left breast pain History of Present Illness: PALAK PUCKETT is a 44 year old female who presented to the emergency room with a 5-day history of left breast pain. She admitted a 5-day history of progressively worsening swelling with pain and dark red discoloration in the left breast. The pain was a severe constant sharp pressure without radiation. She was found to have an abscess of her left breast on examination by Dr. Laughlin. She then underwent surgical incision and drainage of her breast abscess. During the postoperative course Dr. Laughlin has requested a hospitalist consultation for management of her diabetes and hypertension which are poorly controlled due to noncompliance with therapy secondary to side effects of abdominal distention, gas and diarrhea with the metformin she took for her diabetes and lack of symptoms related to her hypertension. Past Medical History Cardiac Medical History: Reports: Hypertension Denies: Coronary Artery Disease Pulmonary Medical History: Denies: Asthma, Chronic Obstructive Pulmonary Disease (COPD) EENT Medical History: Denies: Cataracts, Ears - Hearing aids Neurological Medical History: Denies: Hemorrhagic CVA, Ischemic CVA, Seizures Endocrine Medical History: Reports: Diabetes Mellitus Type 2, Obesity Denies: Diabetes Mellitus Type 1, Hyperthyroidism, Hypothyroidism Renal/ Medical History: Denies: Chronic Kidney Disease, Nephrolithiasis Malignancy Medical History: Reports: None GI Medical History: Denies: Cirrhosis, Crohn's Disease, Gastroesophageal Reflux Disease, Hepatitis, Hiatal Hernia, Peptic Ulcer Disease, Ulcerative Colitis Musculoskeltal Medical History: Denies: Arthritis, Gout Skin Medical History: Denies: Eczema, Psoriasis Psychiatric Medical History: Denies: Alcohol Dependency, Substance Abuse, Tobacco Dependency Traumatic Medical History: Reports: None Hematology: Denies: Anemia, Bleeding Tendencies Infectious Medical History: Reports: None Past Surgical History Past Surgical History: Reports: None Social History Information Source: Patient Lives with: Friend Smoking Status: Never Smoker Electronic Cigarette use?: No Frequency of Alcohol Use: Rare Hx Recreational Drug Use: No Drugs: None Hx Prescription Drug Abuse: No Past Social History Note: Jacekline Limon - Advance Directive Resuscitation Status: Full Code Family History Family History: CVA, DM, Hyperlipidemia, Hypertension Parental Family History Reviewed: Yes Children Family History Reviewed: No Sibling(s) Family History Reviewed.: Yes Medication/Allergy Allergies/Adverse Reactions: No Known Allergies Allergy (Verified 02/07/17 16:52) Review of Systems Constitutional: ABSENT: chills, fever(s) Eyes: ABSENT: visual disturbances, other - Eye pain Ears: ABSENT: hearing changes, other - Ear pain Nose, Mouth, and Throat: ABSENT: headache(s), mouth pain, sore throat Cardiovascular: ABSENT: chest pain, palpitations Respiratory: ABSENT: cough, dyspnea Gastrointestinal: ABSENT: abdominal pain, constipation, diarrhea, nausea, vomiting Musculoskeletal: ABSENT: back pain, joint swelling, muscle weakness Integumentary: PRESENT: as per HPI, erythema - Erythema with swelling and tenderness in the left breast. ABSENT: pruritus, rash Neurological: ABSENT: confusion, convulsions, focal weakness, memory loss, syncope Psychiatric: ABSENT: anxiety, depression Endocrine: ABSENT: cold intolerance, heat intolerance Hematologic/Lymphatic: ABSENT: easy bleeding, easy bruising Allergic/Immunologic: ABSENT: seasonal rhinorrhea Physical Exam Vital Signs: Temp Pulse Resp BP Pulse Ox 97.2 F 103 H 20 152/90 H 97 06/13/19 22:33 06/13/19 22:33 06/13/19 22:33 06/13/19 22:33 06/13/19 22:33 Intake & Output 06/11/19 06/12/19 06/13/19 23:59 23:59 23:59 Intake Total 1700 Output Total 920 Balance 780 Weight 130.3 kg General appearance: PRESENT: no acute distress, cooperative, morbidly obese Head exam: PRESENT: atraumatic, normocephalic Eye exam: PRESENT: conjunctiva pink. ABSENT: conjunctival injection, scleral icterus Ear exam: PRESENT: normal external ear exam. ABSENT: bleeding, drainage Mouth exam: PRESENT: dry mucosa, neck supple Neck exam: ABSENT: thyromegaly, tracheal deviation Respiratory exam: PRESENT: clear to auscultation paulina, symmetrical, unlabored Cardiovascular exam: PRESENT: RRR. ABSENT: clicks, gallop, rubs Pulses: PRESENT: normal radial pulses, normal dorsalis pedis pul Vascular exam: PRESENT: normal capillary refill. ABSENT: pallor GI/Abdominal exam: PRESENT: normal bowel sounds, soft Rectal exam: PRESENT: deferred Extremities exam: ABSENT: joint swelling, pedal edema Musculoskeletal exam: ABSENT: deformity, dislocation Neurological exam: PRESENT: alert, oriented to person, oriented to place, oriented to time, oriented to situation, CN II-XII grossly intact. ABSENT: motor sensory deficit Psychiatric exam: PRESENT: appropriate affect, normal mood Skin exam: PRESENT: dry, warm, other - Surgical dressings present on left breast at site of incision and drainage.. ABSENT: jaundice, rash, urticaria Results Laboratory Results: 06/13/19 17:09 06/13/19 17:09 06/13/19 06/13/19 17:09 17:09 WBC 10.9 H RBC 4.42 Hgb 12.8 Hct 38.4 MCV 87 MCH 29.0 MCHC 33.4 RDW 13.7 Plt Count 252 Seg Neutrophils % 75.9 Sodium 134.0 L Potassium 4.3 Chloride 99 Carbon Dioxide 26 Anion Gap 9 BUN 10 Creatinine 0.52 Est GFR ( Amer) > 60 Glucose 266 H Calcium 9.3 Total Bilirubin 0.9 AST 22 Alkaline Phosphatase 90 Total Protein 7.0 Albumin 3.8 Impressions: Breast Ultrasound 06/13/19 15:23 IMPRESSION: Irregular hypoechoic collection measuring approximately 2.8 x 3.0 x 2.3 cm along the left breast 4 o'clock position suggestive of an abscess. Recommend dedicated follow-up breast imaging following treatment and resolution of current symptoms. Assessment and Plan - Diagnosis (1) Diabetes mellitus type 2 in obese Is this a current diagnosis for this admission?: Yes (2) Essential hypertension Is this a current diagnosis for this admission?: Yes (3) Morbid obesity with BMI of 50.0-59.9, adult Is this a current diagnosis for this admission?: Yes (4) Left breast abscess Is this a current diagnosis for this admission?: Yes - Plan Summary Summary: Patient's diabetes will be managed initially by placing the patient on a cardiac and diabetic diet. Glycemic control will be attempted using glimepiride twice daily with food, adding sliding scale insulin coverage for hyperglycemia and a hypoglycemic protocol in place, utilizing AC and at bedtime Accu-Cheks. Hypertension will be treated with lisinopril initially at 20 mg daily. Hydralazine 20 mg IV every 4 hours as needed systolic blood pressure greater than 160 or diastolic blood pressure greater than 100 will be provided for supplemental control. A hemoglobin A1c will be obtained x1 and CBCs, metabolic profiles and magnesium levels will be monitored at appropriate intervals. Professional dietitian consultation will be obtained for diabetic education and weight reduction. - Time Time Spent with patient: 25-34 minutes Medications reviewed and adjusted accordingly: No - No home meds Anticipated discharge: Home
[2019-06-14] MEDS ORDERED: LISINOPRIL 10 MG TABLET PO ONE (00:30)
[2019-06-14] MEDS: ACETAMINOPHEN INJ/PF 1000 MG/100 ML SDV IV SCH ×2 (01:07→05:23)
[2019-06-14] MEDS: NORMAL SALINE 1000 ML 1,000 ML IV PRN (05:23)
[2019-06-14] MEDS: CLINDAMYCIN 600 MG/D5W RTU 600 MG/50 ML RTUPB IV SCH ×3 (05:59→22:21)
[2019-06-14] MEDS ORDERED: GLIMEPIRIDE 4 MG TABLET PO SCH (08:00)
[2019-06-14] MEDS ORDERED: METFORMIN HCL 500 MG TABLET PO SCH (08:00)
[2019-06-14] MEDS: GLIMEPIRIDE 4 MG TABLET PO SCH ×2 (08:17→17:42)
[2019-06-14] MEDS: INSULIN REG, HUMAN 100 UNIT/ML 3 ML VIAL (PYX) SUBCUT SCH ×4 (08:38→22:25)
[2019-06-14] MEDS: KETOROLAC TROMETHAMINE 10 MG TABLET PO PRN (09:57)
[2019-06-14] MEDS: LISINOPRIL 10 MG TABLET PO SCH (10:00)
[2019-06-14] MEDS: MORPHINE SULFATE 10 MG/ML INJ ONE ×2 (10:11→10:12)
[2019-06-14] MEDS ORDERED: MORPHINE SULFATE 10 MG/ML INJ IV ONE (10:30)
[2019-06-14] MEDS: ACETAMINOPHEN 325 MG TABLET PO PRN (11:10)
--- NOTE | 2019-06-14 11:13 | PDOC PROGRESS REPORT ---
Subjective Progress Note for:: 06/14/19 Subjective:: Some left breast pain but improved from preop Reason For Visit: LEFT BREAST ABSCESS Physical Exam Vital Signs: Temp Pulse Resp BP Pulse Ox 98.3 F 100 22 H 140/61 H 100 06/14/19 08:24 06/14/19 08:57 06/14/19 08:24 06/14/19 08:24 06/14/19 08:24 Intake & Output 06/13/19 06/14/19 06/15/19 06:59 06:59 06:59 Intake Total 3230 Output Total 1320 Balance 1910 Weight 130.3 kg General appearance: PRESENT: no acute distress, cooperative Respiratory exam: PRESENT: clear to auscultation paulina Cardiovascular exam: PRESENT: RRR Skin exam: PRESENT: other - Left breast with erythema and induration with open wound. The packing removed. The wound itself appears clean. The wound lightly repacked. Results Laboratory Results: 06/13/19 17:09 06/13/19 17:09 06/13/19 06/13/19 17:09 17:09 WBC 10.9 H RBC 4.42 Hgb 12.8 Hct 38.4 MCV 87 MCH 29.0 MCHC 33.4 RDW 13.7 Plt Count 252 Seg Neutrophils % 75.9 Sodium 134.0 L Potassium 4.3 Chloride 99 Carbon Dioxide 26 Anion Gap 9 BUN 10 Creatinine 0.52 Est GFR ( Amer) > 60 Glucose 266 H Calcium 9.3 Total Bilirubin 0.9 AST 22 Alkaline Phosphatase 90 Total Protein 7.0 Albumin 3.8 06/13/19 18:25 Blood Blood Culture (PCR) - Final Impressions: Breast Ultrasound 06/13/19 15:23 IMPRESSION: Irregular hypoechoic collection measuring approximately 2.8 x 3.0 x 2.3 cm along the left breast 4 o'clock position suggestive of an abscess. Recommend dedicated follow-up breast imaging following treatment and resolution of current symptoms. Assessment & Plan - Diagnosis (1) Left breast abscess Is this a current diagnosis for this admission?: Yes Plan: Infection under reasonable control but still has cellulitic component. Await culture results. We will keep the patient in the hospital for IV antibiotics and IV pain control. - Time Time Spent with patient: Less than 15 minutes
[2019-06-14] MEDS ORDERED: MORPHINE SULFATE 10 MG/ML INJ IV PRN (13:47)
[2019-06-14] MEDS: KETOROLAC TROMETHAMINE INJ/PF 30 MG/1 ML SDV IV PRN ×2 (16:15→22:37)
--- NOTE | 2019-06-14 16:36 | PDOC PROGRESS REPORT ---
Subjective Progress Note for:: 06/14/19 Subjective:: No adverse events overnight. No new complaints. Vital signs been stable. Blood sugars remain elevated. Reason For Visit: LEFT BREAST ABSCESS Physical Exam Vital Signs: Temp Pulse Resp BP Pulse Ox 99.1 F 105 H 22 H 145/73 H 97 06/14/19 11:41 06/14/19 11:16 06/14/19 08:24 06/14/19 11:16 06/14/19 11:16 Intake & Output 06/13/19 06/14/19 06/15/19 06:59 06:59 06:59 Intake Total 3280 983 Output Total 1320 Balance 1960 983 Weight 130.3 kg General appearance: PRESENT: no acute distress, cooperative, disheveled, morbidly obese Respiratory exam: PRESENT: clear to auscultation paulina, symmetrical, unlabored. ABSENT: accessory muscle use, chest wall tenderness, crackles, prolonged expiratory phas, rhonchi, tachypnea, wheezes Cardiovascular exam: PRESENT: RRR, +S1, +S2 Pulses: PRESENT: normal carotid pulses Vascular exam: PRESENT: normal capillary refill GI/Abdominal exam: PRESENT: normal bowel sounds, soft. ABSENT: distended, guarding, rebound, tenderness Extremities exam: ABSENT: clubbing, pedal edema Musculoskeletal exam: PRESENT: normal inspection. ABSENT: deformity Neurological exam: PRESENT: alert, awake, oriented to person, oriented to place, oriented to situation Psychiatric exam: PRESENT: appropriate affect, normal mood Skin exam: PRESENT: dry, warm Results Laboratory Results: 06/13/19 17:09 06/13/19 17:09 06/13/19 06/13/19 17:09 17:09 WBC 10.9 H RBC 4.42 Hgb 12.8 Hct 38.4 MCV 87 MCH 29.0 MCHC 33.4 RDW 13.7 Plt Count 252 Seg Neutrophils % 75.9 Sodium 134.0 L Potassium 4.3 Chloride 99 Carbon Dioxide 26 Anion Gap 9 BUN 10 Creatinine 0.52 Est GFR ( Amer) > 60 Glucose 266 H Calcium 9.3 Total Bilirubin 0.9 AST 22 Alkaline Phosphatase 90 Total Protein 7.0 Albumin 3.8 06/13/19 18:25 Blood Blood Culture (PCR) - Final Impressions: Breast Ultrasound 06/13/19 15:23 IMPRESSION: Irregular hypoechoic collection measuring approximately 2.8 x 3.0 x 2.3 cm along the left breast 4 o'clock position suggestive of an abscess. Recommend dedicated follow-up breast imaging following treatment and resolution of current symptoms. Assessment and Plan - Diagnosis (1) Diabetes mellitus Qualifiers: Diabetes mellitus type: type 2 Diabetes mellitus prison insulin use: without prison use Diabetes mellitus complication status: without complication Qualified Code(s): E11.9 - Type 2 diabetes mellitus without complications Is this a current diagnosis for this admission?: Yes Plan: Her last hemoglobin A1c was 11.9%, and that was done just over a year ago. She was put on a sliding scale, and Amaryl started yesterday. We will see how this does, but I do not think that is going to be enough to control her blood sugars. She apparently was noncompliant with metformin because it caused some GI upset but she never followed up. Her blood sugars remain in the 300s despite a sliding scale and Amaryl. There is a chance that she will need insulin at home, at least in the short-term. (2) Essential hypertension Is this a current diagnosis for this admission?: Yes Plan: Currently reasonably well-controlled on the current medication regimen. (3) Left breast abscess Is this a current diagnosis for this admission?: Yes Plan: Wound care and antibiotics per surgery, cultures pending (4) Morbid obesity with BMI of 50.0-59.9, adult Is this a current diagnosis for this admission?: Yes Plan: Strongly encouraged lifestyle modification - Plan Summary Summary: Patient's diabetes will be managed initially by placing the patient on a cardiac and diabetic diet. Glycemic control will be attempted using glimepiride twice daily with food, adding sliding scale insulin coverage for hyperglycemia and a hypoglycemic protocol in place, utilizing AC and at bedtime Accu-Cheks. Hypertension will be treated with lisinopril initially at 20 mg daily. Hydralazine 20 mg IV every 4 hours as needed systolic blood pressure greater than 160 or diastolic blood pressure greater than 100 will be provided for supplemental control. A hemoglobin A1c will be obtained x1 and CBCs, metabolic profiles and magnesium levels will be monitored at appropriate intervals. Profe ssional dietitian consultation will be obtained for diabetic education and weight reduction. - Time Time Spent with patient: 15-24 minutes
[2019-06-15] MEDS: CLINDAMYCIN 600 MG/D5W RTU 600 MG/50 ML RTUPB IV SCH (05:28)
[2019-06-15] MEDS: KETOROLAC TROMETHAMINE INJ/PF 30 MG/1 ML SDV IV PRN ×3 (05:28→17:16)
[2019-06-15] MEDS: INSULIN REG, HUMAN 100 UNIT/ML 3 ML VIAL (PYX) SUBCUT SCH ×4 (07:58→23:38)
[2019-06-15] MEDS: GLIMEPIRIDE 4 MG TABLET PO SCH ×2 (08:37→20:46)
[2019-06-15] MEDS: LISINOPRIL 10 MG TABLET PO SCH (09:21)
[2019-06-15] MEDS: MEROPENEM 1 GM in NORMAL SALINE 50 ML IV SCH ×2 (14:10→22:17)
--- NOTE | 2019-06-15 14:45 | PDOC PROGRESS REPORT ---
Subjective Progress Note for:: 06/15/19 Subjective:: No adverse events overnight. No new complaints. Vital signs been stable. Blood pressure has been well controlled. Blood sugars are much improved today. Reason For Visit: LEFT BREAST ABSCESS Physical Exam Vital Signs: Temp Pulse Resp BP Pulse Ox 98.2 F 88 17 131/74 H 100 06/15/19 07:38 06/15/19 07:38 06/15/19 07:38 06/15/19 07:38 06/15/19 07:38 Intake & Output 06/14/19 06/15/19 06/16/19 06:59 06:59 06:59 Intake Total 3280 1083 Output Total 1320 Balance 1960 1083 Weight 130.3 kg 133.8 kg General appearance: PRESENT: no acute distress, cooperative, disheveled, morbidly obese Respiratory exam: PRESENT: clear to auscultation paulina, symmetrical, unlabored. ABSENT: accessory muscle use, chest wall tenderness, crackles, prolonged expiratory phas, rhonchi, tachypnea, wheezes Cardiovascular exam: PRESENT: RRR, +S1, +S2 Pulses: PRESENT: normal carotid pulses Vascular exam: PRESENT: normal capillary refill GI/Abdominal exam: PRESENT: normal bowel sounds, soft. ABSENT: distended, guarding, rebound, tenderness Extremities exam: ABSENT: clubbing, pedal edema Musculoskeletal exam: PRESENT: normal inspection. ABSENT: deformity Neurological exam: PRESENT: alert, awake, oriented to person, oriented to place, oriented to situation Psychiatric exam: PRESENT: appropriate affect, normal mood Skin exam: PRESENT: dry, warm Results Laboratory Results: 06/13/19 17:09 06/13/19 17:09 06/13/19 18:25 Blood Blood Culture (PCR) - Final Impressions: Breast Ultrasound 06/13/19 15:23 IMPRESSION: Irregular hypoechoic collection measuring approximately 2.8 x 3.0 x 2.3 cm along the left breast 4 o'clock position suggestive of an abscess. Recommend dedicated follow-up breast imaging following treatment and resolution of current symptoms. Assessment and Plan - Diagnosis (1) Diabetes mellitus Qualifiers: Diabetes mellitus type: type 2 Diabetes mellitus mcfp insulin use: without mcfp use Diabetes mellitus complication status: without complication Qualified Code(s): E11.9 - Type 2 diabetes mellitus without complications Is this a current diagnosis for this admission?: Yes Plan: Well-controlled on a consistent carbohydrate diet and Amaryl, not needing much supplemental insulin (2) Essential hypertension Is this a current diagnosis for this admission?: Yes Plan: Well-controlled on her current regimen (3) Left breast abscess Is this a current diagnosis for this admission?: Yes Plan: Wound care and antibiotics per surgery, cultures pending (4) Morbid obesity with BMI of 50.0-59.9, adult Is this a current diagnosis for this admission?: Yes Plan: Strongly encouraged lifestyle modification - Plan Summary Summary: Patient's diabetes will be managed initially by placing the patient on a cardiac and diabetic diet. Glycemic control will be attempted using glimepiride twice daily with food, adding sliding scale insulin coverage for hyperglycemia and a hypoglycemic protocol in place, utilizing AC and at bedtime Accu-Cheks. Hypertension will be treated with lisinopril initially at 20 mg daily. Hydralazine 20 mg IV every 4 hours as needed systolic blood pressure greater than 160 or diastolic blood pressure greater than 100 will be provided for supplemental control. A hemoglobin A1c will be obtained x1 and CBCs, metabolic profiles and magnesium levels will be monitored at appropriate intervals. Professional dietitian consultation will be obtained for diabetic education and weight reduction. - Time Time Spent with patient: 15-24 minutes
--- NOTE | 2019-06-15 17:53 | PDOC PROGRESS REPORT ---
Subjective Progress Note for:: 06/15/19 Reason For Visit: LEFT BREAST ABSCESS Physical Exam Vital Signs: Temp Pulse Resp BP Pulse Ox 98.2 F 88 17 131/74 H 100 06/15/19 07:38 06/15/19 07:38 06/15/19 07:38 06/15/19 07:38 06/15/19 07:38 Intake & Output 06/14/19 06/15/19 06/16/19 06:59 06:59 06:59 Intake Total 3280 1083 50 Output Total 1320 Balance 1960 1083 50 Weight 130.3 kg 133.8 kg Results Laboratory Results: 06/13/19 17:09 06/13/19 17:09 06/13/19 18:25 Blood Blood Culture (PCR) - Final Impressions: Breast Ultrasound 06/13/19 15:23 IMPRESSION: Irregular hypoechoic collection measuring approximately 2.8 x 3.0 x 2.3 cm along the left breast 4 o'clock position suggestive of an abscess. Recommend dedicated follow-up breast imaging following treatment and resolution of current symptoms. Assessment & Plan - Time Time Spent with patient: Less than 15 minutes - Plan Summary Plan Summary: 44-year-old female status post incision and drainage of a left breast abscess. Her blood cultures have grown bacillus species in 1 bottle (possible contaminant), but her preliminary wound culture is growing gram-negative rods and gram-positive cocci. I broadened her antibiotic coverage to include gram- negative organisms. Continue with intravenous antibiotics today. Medicine is following for blood glucose control. Once organisms have been delineated and her blood sugars are controlled, will plan for discharge home.
[2019-06-15] MEDS ORDERED: GLIMEPIRIDE 4 MG TABLET PO ONE (21:00)
[2019-06-15] MEDS: ACETAMINOPHEN 325 MG TABLET PO PRN (21:42)
[2019-06-16] MEDS: KETOROLAC TROMETHAMINE INJ/PF 30 MG/1 ML SDV IV PRN ×4 (00:09→18:43)
[2019-06-16] MEDS ORDERED: IPRATROPIUM/ALBUTEROL 0.5-2.5 MG/3 ML AMPUL NEB ONE (01:00)
[2019-06-16] MEDS: MEROPENEM 1 GM in NORMAL SALINE 50 ML IV SCH ×3 (06:02→21:47)
[2019-06-16] MEDS: IPRATROPIUM/ALBUTEROL 0.5-2.5 MG/3 ML AMPUL NEB SCH ×2 (07:53→20:09)
--- NOTE | 2019-06-16 08:47 | PDOC PROGRESS REPORT ---
Subjective Progress Note for:: 06/16/19 Subjective:: Patient had dyspnea last night. Noted chest discomfort with deep breathing and some shortness of breath. Denied any pressure type of pain to her chest. She feels better this morning. Reason For Visit: LEFT BREAST ABSCESS Physical Exam Vital Signs: Temp Pulse Resp BP Pulse Ox 98.3 F 100 24 H 148/77 H 98 06/16/19 08:15 06/16/19 08:15 06/16/19 08:15 06/16/19 08:15 06/16/19 08:15 Intake & Output 06/15/19 06/16/19 06/17/19 06:59 06:59 06:59 Intake Total 1083 580 Balance 1083 580 Weight 133.8 kg General appearance: PRESENT: no acute distress, cooperative Respiratory exam: PRESENT: clear to auscultation paulina Cardiovascular exam: PRESENT: RRR Skin exam: PRESENT: other - Wound appears clean with scant drainage. Surrounding erythema has markedly improved. Results Laboratory Results: 06/13/19 17:09 06/13/19 17:09 06/13/19 18:25 Blood Blood Culture (PCR) - Final Impressions: Breast Ultrasound 06/13/19 15:23 IMPRESSION: Irregular hypoechoic collection measuring approximately 2.8 x 3.0 x 2.3 cm along the left breast 4 o'clock position suggestive of an abscess. Recommend dedicated follow-up breast imaging following treatment and resolution of current symptoms. Assessment & Plan - Diagnosis (1) Left breast abscess Is this a current diagnosis for this admission?: Yes Plan: Looks much improved. Await culture and sensitivity reports. Will need p.o. antibiotics at home. (2) Dyspnea Is this a current diagnosis for this admission?: Yes Plan: Currently asymptomatic. Will check chest x-ray. Will ask a hospitalist input. From her history it does not sound like cardiac related pain but will defer to hospitalist work-up. - Time Time Spent with patient: Less than 15 minutes
[2019-06-16] MEDS: INSULIN REG, HUMAN 100 UNIT/ML 3 ML VIAL (PYX) SUBCUT SCH ×4 (09:50→22:39)
[2019-06-16] MEDS: GLIMEPIRIDE 4 MG TABLET PO SCH ×3 (09:51→18:44)
[2019-06-16] MEDS: LISINOPRIL 10 MG TABLET PO SCH (09:51)
--- NOTE | 2019-06-16 11:31 | RADIOLOGY REPORT (SQ) ---
EXAM DESCRIPTION: CHEST 2 VIEWS COMPLETED DATE/TIME: 06/16/2019 9:35 am REASON FOR STUDY: dyspnea COMPARISON: 04/18/2019 EXAM PARAMETERS: NUMBER OF VIEWS: two views TECHNIQUE: Digital Frontal and Lateral radiographic views of the chest acquired. RADIATION DOSE: NA LIMITATIONS: none FINDINGS: LUNGS AND PLEURA: No opacities, masses or pneumothorax. No pleural effusion. MEDIASTINUM AND HILAR STRUCTURES: No masses or contour abnormalities. HEART AND VASCULAR STRUCTURES: Heart normal size. No evidence for failure. BONES: No acute findings. HARDWARE: None in the chest. OTHER: No other significant finding. IMPRESSION: NO ACUTE RADIOGRAPHIC FINDING IN THE CHEST. TECHNICAL DOCUMENTATION: JOB ID: [id number] [employer] All Rights Reserved Reading location - IP/workstation name: [email or web address]
--- NOTE | 2019-06-16 15:16 | PDOC PROGRESS REPORT ---
Subjective Progress Note for:: 06/16/19 Subjective:: No adverse events overnight. There was some complaints of some vague nonspecific chest pain that has now resolved. Chest x-ray was unremarkable. Blood sugars double what they were yesterday. Reason For Visit: LEFT BREAST ABSCESS Physical Exam Vital Signs: Temp Pulse Resp BP Pulse Ox 98.5 F 104 H 22 H 142/74 H 100 06/16/19 11:21 06/16/19 11:21 06/16/19 11:21 06/16/19 11:21 06/16/19 11:21 Intake & Output 06/15/19 06/16/19 06/17/19 06:59 06:59 06:59 Intake Total 1083 580 50 Balance 1083 580 50 Weight 133.8 kg General appearance: PRESENT: no acute distress, cooperative, disheveled, morbidly obese Respiratory exam: PRESENT: clear to auscultation paulina, symmetrical, unlabored. ABSENT: accessory muscle use, chest wall tenderness, crackles, prolonged expiratory phas, rhonchi, tachypnea, wheezes Cardiovascular exam: PRESENT: RRR, +S1, +S2 Pulses: PRESENT: normal carotid pulses Vascular exam: PRESENT: normal capillary refill GI/Abdominal exam: PRESENT: normal bowel sounds, soft. ABSENT: distended, guarding, rebound, tenderness Extremities exam: ABSENT: clubbing, pedal edema Musculoskeletal exam: PRESENT: normal inspection. ABSENT: deformity Neurological exam: PRESENT: alert, awake, oriented to person, oriented to place, oriented to situation Psychiatric exam: PRESENT: appropriate affect, normal mood Skin exam: PRESENT: dry, warm Results Laboratory Results: 06/13/19 17:09 06/13/19 17:09 06/13/19 19:39 Breast - Left Side Abscess Gram Stain - Final 06/13/19 18:25 Blood Blood Culture (PCR) - Final 06/13/19 18:25 Blood Blood Culture - Final Bacillus Sp. Not Anthracis Impressions: Breast Ultrasound 06/13/19 15:23 IMPRESSION: Irregular hypoechoic collection measuring approximately 2.8 x 3.0 x 2.3 cm along the left breast 4 o'clock position suggestive of an abscess. Recommend dedicated follow-up breast imaging following treatment and resolution of current symptoms. Chest X-Ray 06/16/19 00:00 IMPRESSION: NO ACUTE RADIOGRAPHIC FINDING IN THE CHEST. Assessment and Plan - Diagnosis (1) Diabetes mellitus Qualifiers: Diabetes mellitus type: type 2 Diabetes mellitus terminal make up operator insulin use: w [facility] terminal make up operator use Diabetes mellitus complication status: without compl ication Qualified Code(s): E11.9 - Type 2 diabetes mellitus without compl ications Is this a current diagnosis for this admission?: Yes Plan: Blood sugars are somewhat elevated today. We will continue Amaryl and well add metformin. She says that she had some GI upset with it in the past, but she also says she did not take it as regularly as she should. She is willing to give it another try. (2) Essential hypertension Is this a current diagnosis for this admission?: Yes Plan: Well-controlled on her current regimen (3) Left breast abscess Is this a current diagnosis for this admission?: Yes Plan: Wound care and antibiotics per surgery, cultures pending (4) Morbid obesity with BMI of 50.0-59.9, adult Is this a current diagnosis for this admission?: Yes Plan: Strongly encouraged lifestyle modification - Plan Summary Summary: Patient's diabetes will be managed initially by placing the patient on a cardiac and diabetic diet. Glycemic control will be attempted using glimepiride twice daily with food, adding sliding scale insulin coverage for hyperglycemia and a hypoglycemic protocol in place, utilizing AC and at bedtime Accu-Cheks. Hypertension will be treated with lisinopril initially at 20 mg daily. Hydralazine 20 mg IV every 4 hours as needed systolic blood pressure greater than 160 or diastolic blood pressure greater than 100 will be provided for supplemental control. A hemoglobin A1c will be obtained x1 and CBCs, metabolic profiles and magnesium levels will be monitored at appropriate intervals. Professional dietitian consultation will be obtained for diabetic education and weight reduction. - Time Time Spent with patient: 15-24 minutes
[2019-06-16] MEDS: METFORMIN HCL 500 MG TABLET PO SCH (17:54)
[2019-06-17] MEDS: KETOROLAC TROMETHAMINE INJ/PF 30 MG/1 ML SDV IV PRN ×3 (01:13→15:12)
[2019-06-17] MEDS: MEROPENEM 1 GM in NORMAL SALINE 50 ML IV SCH ×2 (06:22→15:14)
[2019-06-17] MEDS: IPRATROPIUM/ALBUTEROL 0.5-2.5 MG/3 ML AMPUL NEB SCH (07:28)
[2019-06-17] MEDS: METFORMIN HCL 500 MG TABLET PO SCH ×2 (08:15→17:10)
[2019-06-17] MEDS: INSULIN REG, HUMAN 100 UNIT/ML 3 ML VIAL (PYX) SUBCUT SCH ×3 (08:58→17:10)
[2019-06-17] MEDS: LISINOPRIL 10 MG TABLET PO SCH (09:03)
--- NOTE | 2019-06-17 11:37 | PDOC DISCHARGE SUMMARY ---
General - Admit/Disc Date/PCP Admission Date/Primary Care Provider: 06/13/19 18:26 Discharge Date: 06/17/19 - Discharge Diagnosis Final Diagnosis: Left breast abscess, diabetes - Assessment Summary: Ms. Smith is a 44-year-old female with history of diabetes obesity presented on 06/13/2019 with a left breast abscess She was taken to the operating where she went underwent incision and drainage and has been doing better on the floor with wound packing since the procedure done. Initially, blood cultures positive for bacillus but there was question whether this was a contaminant or not wound cultures were positive for staph. At this point she wound is clean and dry and she is tolerating pack dressing packing regimens are being made for home health care for wound dressing changes. She will be discharged home on Augmentin 500 mg p.o. twice daily and tramadol for pain Patient's diabetes will be managed initially by placing the patient on a cardiac and diabetic diet. Glycemic control will be attempted using glimepiride twice daily with food, adding sliding scale insulin coverage for hyperglycemia and a hypoglycemic protocol in place, utilizing AC and at bedtime Accu-Cheks. Hypertension will be treated with lisinopril initially at 20 mg daily. Hydralazine 20 mg IV every 4 hours as needed systolic blood pressure greater than 160 or diastolic blood pressure greater than 100 will be provided for supplemental control. A hemoglobin A1c will be obtained x1 and CBCs, metabolic profiles and magnesium levels will be monitored at appropriate intervals. Professional dietitian consultation will be obtained for diabetic education and weight reduction. - Additional Information Resuscitation Status: Full Code Referrals: YANNI SAL MD [ACTIVE STAFF] - Follow up as needed Home Medications: No Home Medications 06/14/19 History of Present Illiness History of Present Illness: PALAK SMITH is a 44 year old female Physical Exam Vital Signs: Temp Pulse Resp BP Pulse Ox 97.5 F 96 18 151/82 H 98 06/17/19 08:42 06/17/19 08:42 06/17/19 08:42 06/17/19 08:42 06/17/19 08:42 Intake & Output 06/16/19 06/17/19 06/18/19 06:59 06:59 06:59 Intake Total 580 125 Balance 580 125 Weight 136.7 kg Results Laboratory Results: WBC 10.9 10^3/uL (4.0-10.5) H 06/13/19 17:09 RBC 4.42 10^6/uL (3.72-5.28) 06/13/19 17:09 Hgb 12.8 g/dL (12.0-15.5) 06/13/19 17:09 Hct 38.4 % (36.0-47.0) 06/13/19 17:09 MCV 87 fl (80-97) 06/13/19 17:09 MCH 29.0 pg (27.0-33.4) 06/13/19 17:09 MCHC 33.4 g/dL (32.0-36.0) 06/13/19 17:09 RDW 13.7 % (11.5-14.0) 06/13/19 17:09 Plt Count 252 10^3/uL (150-450) 06/13/19 17:09 Lymph % (Auto) 13.9 % (13-45) 06/13/19 17:09 Nolan % (Auto) 8.9 % (3-13) 06/13/19 17:09 Eos % (Auto) 0.9 % (0-6) 06/13/19 17:09 Baso % (Auto) 0.4 % (0-2) 06/13/19 17:09 Absolute Neuts (auto) 8.3 10^3/uL (1.7-8.2) H 06/13/19 17:09 Absolute Lymphs (auto) 1.5 10^3/uL (0.5-4.7) 06/13/19 17:09 Absolute Monos (auto) 1.0 10^3/uL (0.1-1.4) 06/13/19 17:09 Absolute Eos (auto) 0.1 10^3/uL (0.0-0.6) 06/13/19 17:09 Absolute Basos (auto) 0.0 10^3/uL (0.0-0.2) 06/13/19 17:09 Seg Neutrophils % 75.9 % (42-78) 06/13/19 17:09 Sodium 134.0 mmol/L (137-145) L 06/13/19 17:09 Potassium 4.3 mmol/L (3.6-5.0) 06/13/19 17:09 Chloride 99 mmol/L (98-107) 06/13/19 17:09 Carbon Dioxide 26 mmol/L (22-30) 06/13/19 17:09 Anion Gap 9 (5-19) 06/13/19 17:09 BUN 10 mg/dL (7-20) 06/13/19 17:09 Creatinine 0.52 mg/dL (0.52-1.25) 06/13/19 17:09 Est GFR ( Amer) > 60 (>60) 06/13/19 17:09 Est GFR (MDRD) Non-Af > 60 (>60) 06/13/19 17:09 Glucose 266 mg/dL (75-110) H 06/13/19 17:09 POC Glucose 198 mg/dL (70-110) H 06/17/19 08:21 Calcium 9.3 mg/dL (8.4-10.2) 06/13/19 17:09 Total Bilirubin 0.9 mg/dL (0.2-1.3) 06/13/19 17:09 Direct Bilirubin 0.2 mg/dL (0.0-0.4) 06/13/19 17:09 Neonat Total Bilirubin Not Reportable 06/13/19 17:09 Neonat Direct Bilirubin Not Reportable 06/13/19 17:09 Neonat Indirect Bili Not Reportable 06/13/19 17:09 AST 22 U/L (14-36) 06/13/19 17:09 ALT 26 U/L (<35) 06/13/19 17:09 Alkaline Phosphatase 90 U/L (38-126) 06/13/19 17:09 Total Protein 7.0 g/dL (6.3-8.2) 06/13/19 17:09 Albumin 3.8 g/dL (3.5-5.0) 06/13/19 17:09 Urine HCG, Qual NEGATIVE (NEGATIVE) 06/13/19 18:25 Impressions: Breast Ultrasound 06/13/19 15:23 IMPRESSION: Irregular hypoechoic collection measuring approximately 2.8 x 3.0 x 2.3 cm along the left breast 4 o'clock position suggestive of an abscess. Recommend dedicated follow-up breast imaging following treatment and resolution of current symptoms. Chest X-Ray 06/16/19 00:00 IMPRESSION: NO ACUTE RADIOGRAPHIC FINDING IN THE CHEST.
[2019-06-17 16:13] VITALS: BP 179/83
[2019-06-17] MEDS: GLIMEPIRIDE 4 MG TABLET PO SCH ×2 (16:20→17:10)
[2019-06-17] MEDS ORDERED: LISINOPRIL 10 MG TABLET PO ONE (17:00)
== END 2019-06-17 18:00 | disposition home health service (06) | DRG 571 ==
LOC: ER 14:22 → EH 18:26 → OBSVTOIN 18:26 → 2N 21:01
PROVIDERS: ADMIT Surgery; ATTEND Surgery
PROC: 0JB60ZZ Excision of Chest Subcutaneous Tissue and Fascia, Open Approach (ICD-10-PCS; principal; 2019-06-13 18:45)
DX: N61.1 Abscess of the breast and nipple (principal); Z68.43 Body mass index [BMI] 50.0-59.9, adult; I10 Essential (primary) hypertension; E11.65 Type 2 diabetes mellitus with hyperglycemia; E66.01 Morbid (severe) obesity due to excess calories; Z91.14 Patient's other noncompliance with medication regimen; Z79.891 Long term (current) use of opiate analgesic; Z79.51 Long term (current) use of inhaled steroids; Z79.52 Long term (current) use of systemic steroids; Z79.899 Other long term (current) drug therapy
CPT/HCPCS: 36415; 400; 71046; 76641; 80053; 81025; 82962; 85025; 87040; 87070; 87075; 87077; 87150; 87186; 87205; 94640; 94799; 96374; 99285; J0131; J1815; J1885; J2001; J2185; J2250; J2270; J2405; J2704; J3010; J3490; J7030; J7620

== ENCOUNTER → 2019-07-20 | Outpatient (CLI) | payer BC ==
[2019-07-20 14:18] LABS: ABSOLUTE EOSINOPHILS # (AUTO) 0.1 10^3/uL (0.0-0.6); ABSOLUTE LYMPHOCYTES (AUTO) 1.7 10^3/uL (0.5-4.7); ABSOLUTE MONOCYTES (AUTO) 0.5 10^3/uL (0.1-1.4); ABSOLUTE NEUT (AUTO) 4.2 10^3/uL (1.7-8.2); BASOPHILS % (AUTO) 0.5 % (0-2); HEMATOCRIT 38.7 % (36.0-47.0); HEMOGLOBIN 13.1 g/dL (12.0-15.5); LYMPHOCYTES % (AUTO) 26.3 % (13-45); MEAN CORPUSCULAR HEMOGLOBIN 28.8 pg (27.0-33.4); MEAN CORPUSCULAR VOLUME 85 fl (80-97); MONOCYTES % (AUTO) 7.9 % (3-13); PLATELET COUNT 254 10^3/uL (150-450); RED BLOOD COUNT 4.56 10^6/uL (3.72-5.28); RED CELL DISTRIBUTION WIDTH 14.3 % (11.5-14.0); SEGMENTED NEUTROPHILS % (AUTO) 63.3 % (42-78); TOTAL CELLS COUNTED % (AUTO) 100 %; WHITE BLOOD COUNT 6.6 10^3/uL (4.0-10.5)
[2019-07-20 14:42] LABS: ALBUMIN 4.3 g/dL (3.5-5.0); ALKALINE PHOSPHATASE 66 U/L (38-126); ANION GAP 11 (5-19); ASPARTATE AMINO TRANSFERASE 23 U/L (14-36); BILIRUBIN,DIRECT 0.3 mg/dL (0.0-0.4); BILIRUBIN,TOTAL 0.7 mg/dL (0.2-1.3); BLOOD UREA NITROGEN 12 mg/dL (7-20); CALCIUM 9.5 mg/dL (8.4-10.2); CARBON DIOXIDE 26 mmol/L (22-30); CHLORIDE 102 mmol/L (98-107); CHOLESTEROL 308.39 mg/dL (0-200); GLUCOSE 157 mg/dL (75-110); POTASSIUM 4.2 mmol/L (3.6-5.0); TOTAL PROTEIN 7.9 g/dL (6.3-8.2); TRIGLYCERIDES 199 mg/dL (<150)
[2019-07-20 14:53] LABS: DIRECT LDL 221 mg/dL (<100)
[2019-07-20 14:57] LABS: VLDL CHOLESTEROL 39.8 mg/dL (10-31)
[2019-07-22 11:37] LABS: CREATININE URINE 93.2 mg/dL (Not Estab.)
[2019-07-22 11:46] LABS: MICROALBUMIN URINE 499.4 ug/mL (Not Estab.)
== END ==
LOC: OD 13:13
PROVIDERS: ATTEND Family Medicine Geriatric Medicine
DX: E11.9 Type 2 diabetes mellitus without complications (principal); I10 Essential (primary) hypertension; E78.5 Hyperlipidemia, unspecified; E66.9 Obesity, unspecified; Z79.899 Other long term (current) drug therapy
CPT/HCPCS: 36415; 80053; 80061; 82043; 82570; 83036; 84443; 85025

== ENCOUNTER 2020-06-13 06:42 | Emergency (ER) | payer BC ==
[2020-06-13 07:52] LABS: APPEARANCE,URINE SLIGHTLY-CLOUDY; BILIRUBIN,URINE NEGATIVE (NEGATIVE); COLOR,URINE YELLOW; GLUCOSE, URINE >=500 mg/dL (NEGATIVE); KETONES,URINE TRACE mg/dL (NEGATIVE); LEUKOCYTE ESTERASE,URINE TRACE (NEGATIVE); NITRITE,URINE NEGATIVE (NEGATIVE); PROTEIN,URINE NEGATIVE (NEGATIVE); UROBILINOGEN,URINE NEGATIVE mg/dL (<2.0)
--- NOTE | 2020-06-13 08:21 | ER Document Report ---
Entered by MARIE CASTREJON SCRIBE 06/13/20 0743 Acting as scribe for:DRISS ESTEVES MD ED General - General Chief Complaint: Breathing Difficulty Stated Complaint: SHORTNESS OF BREATH,VAGINAL BLEEDING Time Seen by Provider: 06/13/20 07:37 Primary Care Provider: BRITT COLEMAN MD [Primary Care Provider] - Follow up as needed Mode of Arrival: Ambulatory Information source: Patient Notes: This 45 year old female patient presents to the ED today with complaints of generalized weakness related to heavy vaginal bleeding that started x3 days ago. Patient reports a history of heavy irregular periods, but states that bleeding is heavier than usual with clots. Denies receiving blood transfusions in the past for this issue. She also states that she noticed that she became short of breath with minimal exertion yesterday. The patient did tell me that the bleeding has slowed down over the last 1 or 2 days. She is also been taking an [id number] iron tablet that has 28 mg of iron daily for the past week or so. TRAVEL OUTSIDE OF THE [place] IN LAST 30 DAYS: No - Related Data Allergies/Adverse Reactions: No Known Allergies Allergy (Verified 06/13/20 07:34) Past Medical History - General Information source: Patient, [facility] - Social History Smoking Status: Never Smoker Cigarette use (# per day): No Chew tobacco use (# tins/day): No Smoking Education Provided: No Frequency of alcohol use: None Drug Abuse: None Family History: Reviewed & Not Pertinent, CVA, DM, Hyperlipidemia, Hypertension Patient has suicidal ideation: No Patient has homicidal ideation: No - Past Medical History Cardiac Medical History: Reports: Hx Hypertension Endocrine Medical History: Reports: Hx Diabetes Mellitus Type 2 Musculoskeletal Medical History: Reports Hx Musculoskeletal Trauma - Fracture to her leg Skin Medical History: Reports Hx Cellulitis Traumatic Medical History: Reports: Hx Fractures - Leg at 8 years old Past Surgical History: Reports: Hx Breast Surgery - Left breast abscess 06/13/19 - Immunizations Immunizations up to date: No Hx Diphtheria, Pertussis, Tetanus Vaccination: No Review of Systems - Review of Systems Constitutional: See HPI, Weakness EENT: No symptoms reported Cardiovascular: No symptoms reported Respiratory: See HPI, Short of breath Gastrointestinal: No symptoms reported Genitourinary: No symptoms reported Female Genitourinary: See HPI, Heavy/abnormal periods, Irregular period, Vaginal bleeding Musculoskeletal: No symptoms reported Skin: No symptoms reported Hematologic/Lymphatic: No symptoms reported Neurological/Psychological: No symptoms reported -: Yes All other systems reviewed and negative Physical Exam - Vital signs Vitals: Temp Pulse Resp BP Pulse Ox 98.8 F 115 H 18 149/79 H 99 06/13/20 07:02 06/13/20 07:02 06/13/20 07:02 06/13/20 07:02 06/13/20 07:02 - General General appearance: Alert In distress: None - HEENT Head: Normocephalic, Atraumatic Eyes: Pale conjunctiva Pupils: PERRL Neck: Normal, Supple - Respiratory Respiratory status: No respiratory distress Chest status: Nontender Breath sounds: Normal Chest palpation: Normal - Cardiovascular Rhythm: Regular, Tachycardia Heart sounds: Normal auscultation Murmur: No Friction rub: No Gallop: None auscultated - Abdominal Inspection: Obese Distension: No distension Bowel sounds: Normal Tenderness: Nontender - Abdomen soft Organomegaly: No organomegaly - Back Back: Normal, Nontender - Extremities General upper extremity: Normal inspection General lower extremity: Normal inspection. No: Edema - Neurological Neuro grossly intact: Yes Orientation: AAOx4 [place] Coma Scale Eye Opening: Spontaneous [place] Coma Scale Verbal: Oriented [place] Coma Scale Motor: Obeys Commands [place] Coma Scale Total: 15 - Psychological Associated symptoms: Normal affect, Normal mood - Skin Skin Temperature: Warm Skin Moisture: Dry Skin Color: Normal Course - Vital Signs Vital signs: Temp Pulse Resp BP Pulse Ox 99.0 F 110 H 18 149/71 H 98 06/13/20 09:07 06/13/20 09:07 06/13/20 09:07 06/13/20 09:07 06/13/20 09:07 - Laboratory Result Diagrams: 06/13/20 08:25 06/13/20 08:25 Laboratory results interpreted by me: 06/13/20 06/13/20 06/13/20 07:30 08:25 08:25 RBC 3.04 L Hgb 8.9 L Hct 26.8 L Sodium 136.0 L Glucose 322 H Magnesium 1.5 L Urine Glucose (UA) >=500 H Urine Ketones TRACE H Urine Blood LARGE H Ur Leukocyte Esterase TRACE H - EKG Interpretation by Ri EKG shows normal: Sinus rhythm, [place], Intervals, ST-T Waves. abnormal: QRS Complexes - Borderline R wave progression in the anterior leads Rate: Tachycardia - 111 When compared to previous EKG there are: Previous EKG unavailable Discharge - Discharge Clinical Impression: Dysfunctional uterine bleeding, Weakness Anemia Qualifiers: Anemia type: unspecified type Qualified Code(s): D64.9 - Anemia, unspecified Condition: Stable Disposition: HOME, SELF-CARE Additional Instructions: Dysfunctional Uterine Bleeding: You're having an abnormal pattern of bleeding from the uterus. We call this dysfunctional uterine bleeding. It is most often caused by a hormone imbalance. Most often this is temporary and no cause is found. There's no evidence of , tumors, or infection as a cause. Dysfunctional uterine bleeding is especially common at times when the normal menstrual cycle is disturbed -- whether by recent , use of control pills or hormones, or impending menopause. Some medical problems lead to dysfunctional bleeding, such as obesity or being very underweight, stress, or thyroid problems. In many cases, the menstrual cycle will return to normal without any treatment. Where the bleeding is significant, high-dose estrogen will usually stop the bleeding within a day of two. A cycle or two of hormones ( control pills) can help restore the uterus to normal. In some patients where bleeding is severe or resistant to treatment, a D&C is required. A endometrial biopsy (a sample of the inside of the uterus) may be recommended for some older women. This would be done by a gynecology specialist. Treatment for anemia may be required if bleeding is severe. You should rest and avoid intercourse until the bleeding is controlled. Call the doctor or return for re-examination if you feel faint, have increasing pain, or have a major increase in the amount of bleeding. You have become anemic from the heavy blood loss you suffered during your period. At this point you do not need a blood transfusion. You will be started on a hormone pill called Provera which should help stop the bleeding over the next few days. Start taking the Provera tomorrow. You also be started on iron pills to help you build back your normal blood supply. Call [facility] to schedule an appointment for Thursday of next week for recheck. Rest for the next 1 to 2 days. Return to the emergency room if your bleeding starts getting bad again. RETURN TO THE EMERGENCY ROOM IF ANY NEW OR WORSENING SYMPTOMS. Prescriptions: Ferrous Sulfate 325 mg PO DAILY #100 tablet. Medroxyprogesterone Acet [Provera 10 Mg Tablet] 10 mg PO DAILY #9 tablet Referrals: BRITT COLEMAN MD [Primary Care Provider] - Follow up as needed [facility] [Provider Group] - Follow up in 1 week I personally performed the services described in the documentation, reviewed and edited the documentation which was dictated to the scribe in my presence, and it accurately records my words and actions.
[2020-06-13 08:43] LABS: ABSOLUTE BASOPHILS # (AUTO) 0.1 10^3/uL (0.0-0.2); ABSOLUTE EOSINOPHILS # (AUTO) 0.3 10^3/uL (0.0-0.6); ABSOLUTE LYMPHOCYTES (AUTO) 1.9 10^3/uL (0.5-4.7); ABSOLUTE MONOCYTES (AUTO) 0.6 10^3/uL (0.1-1.4); ABSOLUTE NEUT (AUTO) 6.3 10^3/uL (1.7-8.2); BASOPHILS % (AUTO) 0.6 % (0-2); EOSINOPHILS % (AUTO) 2.8 % (0-6); HEMATOCRIT 26.8 % (36.0-47.0); HEMOGLOBIN 8.9 g/dL (12.0-15.5); MEAN CORPUSCULAR HEMOGLOBIN 29.4 pg (27.0-33.4); MEAN CORPUSCULAR HGB CONC 33.3 g/dL (32.0-36.0); MEAN CORPUSCULAR VOLUME 88 fl (80-97); MONOCYTES % (AUTO) 6.4 % (3-13); PLATELET COUNT 302 10^3/uL (150-450); RED BLOOD COUNT 3.04 10^6/uL (3.72-5.28); RED CELL DISTRIBUTION WIDTH 13.7 % (11.5-14.0); SEGMENTED NEUTROPHILS % (AUTO) 69.2 % (42-78); TOTAL CELLS COUNTED % (AUTO) 100 %; WHITE BLOOD COUNT 9.1 10^3/uL (4.0-10.5)
[2020-06-13 08:47] LABS: INTERNATIONAL RATION (INR) 0.98; PROTHROMBIN TIME 13.2 SEC (11.4-15.4)
[2020-06-13 09:03] LABS: ALBUMIN 4.2 g/dL (3.5-5.0); ALKALINE PHOSPHATASE 72 U/L (38-126); ANION GAP 12 (5-19); ASPARTATE AMINO TRANSFERASE 28 U/L (14-36); BILIRUBIN,DIRECT 0.2 mg/dL (0.0-0.4); BILIRUBIN,TOTAL 0.5 mg/dL (0.2-1.3); BLOOD UREA NITROGEN 19 mg/dL (7-20); CALCIUM 9.9 mg/dL (8.4-10.2); CARBON DIOXIDE 23 mmol/L (22-30); CHLORIDE 101 mmol/L (98-107); GLUCOSE 322 mg/dL (75-110); POTASSIUM 4.9 mmol/L (3.6-5.0); TOTAL PROTEIN 7.1 g/dL (6.3-8.2)
[2020-06-13 09:11] LABS: CREATINE KINASE MB 2.55 ng/mL (<4.55)
--- NOTE | 2020-06-13 09:11 | EKG REPORT ---
SEVERITY:- BORDERLINE ECG - SINUS TACHYCARDIA BORDERLINE R WAVE PROGRESSION, ANTERIOR LEADS : Confirmed by: Epi Rowe MD 13-Jun-2020 09:10:11
[2020-06-13] MEDS ORDERED: MEDROXYPROGESTERONE ACET 10 MG TABLET PO ONE (09:30)
[2020-06-13] MEDS ORDERED: NORMAL SALINE 1000 ML 1,000 ML IV ONE (09:30)
[2020-06-13 09:33] LABS: TROPONIN I < 0.012 ng/mL
[2020-06-13 11:04] VITALS: BP 171/95
== END 2020-06-13 11:05 | disposition home or self-care (01) ==
LOC: ER 06:42
DX: N93.8 Other specified abnormal uterine and vaginal bleeding (principal); N92.1 Excessive and frequent menstruation with irregular cycle; D64.9 Anemia, unspecified; R53.1 Weakness; R06.02 Shortness of breath; R00.0 Tachycardia, unspecified; I10 Essential (primary) hypertension; E11.9 Type 2 diabetes mellitus without complications
CPT/HCPCS: 93005; 99284; 96360; 86900; 86901; 36415; 82553; 86850; 83735; 84443; 84703; 85025; 85610; 80053; 81001; 84484; 93010; J3490; J7030